=== PATIENT | female | born 1935 | race Caucasian/White ===

== ENCOUNTER 2019-03-17 15:41 | Inpatient (IN) | payer MEDICARE ==
--- NOTE | 2019-03-17 16:23 | EDM.PDOC ---
ED HPI GENERAL MEDICAL PROBLEM - General Chief Complaint: General Stated Complaint: FOUND ON FLOOR Time Seen by Provider: 03/17/19 16:00 Source of Information: Reports: Patient, Old Records History Limitations: Reports: No Limitations - History of Present Illness INITIAL COMMENTS - FREE TEXT/NARRATIVE: Shira comes into [facility] ED by EMS after being found on the bathroom floor by relative about an hour ago. She missed a cardiology appt at 10:30 am today. Shira is uncertain about how events occurred except to say that she remembers getting out of bed this am and does not believe she fell. She does not endorse any headache, lt headiness, or chest pain. She does have a painful R elbow present the past few days, and was seen recently for L leg pain, doppler venous study negative for DVT. She was prescribed Tramadol 50 mg for relief, but daughter suspects she took 2 tabs for pain relief. She lives alone in [facility]. - Related Data Allergies Allergy/AdvReac Type Severity Reaction Status Date / Time No Known Allergies Allergy Verified 03/03/13 09:14 Home Meds: Home Meds Aspirin [Adult Low Dose Aspirin EC] 81 mg PO BEDTIME 12/11/13 [History] Ezetimibe [Zetia] 10 mg PO DAILY 12/11/13 [History] PARoxetine [Paxil] 40 mg PO DAILY 12/11/13 [History] atorvaSTATin [Lipitor] 60 mg PO BEDTIME 12/11/13 [History] Furosemide [Lasix] 40 mg PO DAILY 12/13/13 [History] Warfarin Sodium [Jantoven] 1 mg PO DAILY 03/17/19 [History] hydroCHLOROthiazide [Hydrochlorothiazide] 10 mg PO DAILY 03/17/19 [History] traMADol [Ultram] 50 mg PO Q8HR PRN 03/17/19 [History] ED ROS GENERAL - Review of Systems Review Of Systems: See Below Constitutional: Reports: No Symptoms HEENT: Reports: No Symptoms Respiratory: Reports: No Symptoms Cardiovascular: Reports: No Symptoms Endocrine: Reports: No Symptoms GI/Abdominal: Reports: No Symptoms : Reports: No Symptoms Musculoskeletal: Reports: Arm Pain (R elbow), Leg Pain (L calf and improved on pain meds) Skin: Reports: No Symptoms Neurological: Reports: Syncope (PMH of sycope) Psychiatric: Reports: No Symptoms Hematologic/Lymphatic: Reports: No Symptoms Immunologic: Reports: No Symptoms ED EXAM, GENERAL - Physical Exam Exam: See Below Exam Limited By: No Limitations General Appearance: Alert, WD/WN, No Apparent Distress Eye Exam: Bilateral Eye: EOMI, Normal Inspection, PERRL Ears: Normal External Exam Nose: Normal Inspection Throat/Mouth: Normal Inspection, Normal Oropharynx, Normal Voice Head: Atraumatic, Normocephalic Neck: Normal Inspection, Supple, Non-Tender, Full Range of Motion Respiratory/Chest: No Respiratory Distress, No Accessory Muscle Use, Chest Non- Tender, Decreased Breath Sounds (bases), Crackles Cardiovascular: Normal Peripheral Pulses, Irregularly Irregular, Other (opening 'click' aortic valve) GI/Abdominal: Normal Bowel Sounds, Soft, Non-Tender, No Organomegaly, No Distention, No Mass (Female) Exam: Deferred Rectal (Female) Exam: Deferred Back Exam: Normal Inspection, Full Range of Motion Extremities: Arm Pain (R elbow: tenderness of distal biceps extending to insertion with forearm), Leg Pain (L leg, mild), Limited Range of Motion (R forearm) Neurological: Alert, Oriented, CN II-XII Intact, Normal Cognition, No Motor/ Sensory Deficits Psychiatric: Normal Affect, Normal Mood Skin Exam: Warm, Dry, Intact, Normal Color, No Rash, Other (edema) Lymphatic: No Adenopathy Course - Vital Signs Text/Narrative:: Following assessment in the ED, I started an IV LUE TKO, and provided supplemental 02 for SOB. 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 The CBC noted: Hgb 11.0 gm, WBC 11,900, plts normal; L shift noted; CMP noted Cr 2.9, BUN 80, BNP 12,007; chest x ray noting extensive R middle lobe infiltrates; some cardiomegaly; Head CT non contrast: stable, no new findings; R elbow: no fx seen; a pneumonia is suspected, with pre-renal azotemia. Case discussed with daughter, and she will be admitted as IP. Last Recorded V/S: Last Vital Signs Temp 36.7 C 03/17/19 15:41 Pulse 111 H 03/17/19 15:41 Resp 23 H 03/17/19 15:41 BP 103/65 03/17/19 15:41 Pulse Ox 90 L 03/17/19 15:41 - Orders/Labs/Meds Orders: Active Orders 24 hr Category Date Time Status Chest 1V Frontal [CR] Stat Exams 03/17/19 16:13 Taken Chest 2V [CR] Stat Exams 03/17/19 17:09 Taken Elbow Min 3V Rt [CR] Stat Exams 03/17/19 16:13 Taken Head wo Cont [CT] Urgent Exams 03/17/19 16:25 Taken CRP [C-REACTIVE PROTEIN] [CHEM] Stat Lab 03/17/19 16:15 Received LACTIC ACID [CHEM] Stat Lab 03/17/19 16:15 Received UA W/MICROSCOPIC [URIN] Stat Lab 03/17/19 16:13 Ordered Sodium Chloride 0.9% [Saline Flush] Med 03/17/19 16:17 Active 10 ml FLUSH ASDIRECTED PRN Peripheral IV Insertion Adult [OM.PC] Routine Oth 03/17/19 16:17 Ordered EKG 12 Lead [EK] Routine Ther 03/17/19 16:13 Ordered Medication Orders Sodium Chloride (Saline Flush) 10 ml FLUSH ASDIRECTED PRN PRN Reason: Keep Vein Open Labs: Laboratory Tests 03/17/19 03/17/19 03/17/19 Range/Units 16:15 16:15 16:15 WBC 11.9 (4.5-12.0) X10-3/uL RBC 3.59 (3.23-5.20) x10(6)uL Hgb 11.0 L (11.5-15.5) g/dL Hct 33.2 (30.0-51.3) % MCV 92.5 (80-96) fL MCH 30.7 (27.7-33.6) pg MCHC 33.2 (32.2-35.4) g/dL RDW 15.2 (11.5-15.5) % Plt Count 254 (125-369) X10(3)uL MPV 8.9 (7.4-10.4) fL Add Manual Diff Yes Neutrophils % (Manual) 74 (46-82) % Band Neutrophils % 9 H (0-6) % Lymphocytes % (Manual) 12 L (13-37) % Monocytes % (Manual) 5 (4-12) % PT 30.4 H (8.7-11.1) INR 3.17 H (0.89-1.13) Sodium 136 (135-145) mmol/L Potassium 4.0 (3.5-5.3) mmol/L Chloride 98 L (100-110) mmol/L Carbon Dioxide 25 (21-32) mmol/L BUN 80 H (7-18) mg/dL Creatinine 2.9 H* (0.55-1.02) mg/dL Est Cr Clr Drug Dosing TNP Estimated GFR (MDRD) 16 L (>60) BUN/Creatinine Ratio 27.6 H (9-20) Glucose 111 (80-116) mg/dL Calcium 9.7 (8.6-10.2) mg/dL Total Bilirubin 0.6 (0.1-1.3) mg/dL AST 122 H (5-25) IU/L ALT 40 H (12-36) U/L Alkaline Phosphatase 86 (56-112) IU/L Troponin I (<0.017-0.056) ng/mL NT-Pro-B Natriuret Pep (<=450) pg/mL Total Protein 7.3 (6.0-8.0) g/dL Albumin 2.5 L (3.2-4.6) g/dL Globulin 4.8 g/dL Albumin/Globulin Ratio 0.5 03/17/19 03/17/19 Range/Units 16:15 16:15 WBC (4.5-12.0) X10-3/uL RBC (3.23-5.20) x10(6)uL Hgb (11.5-15.5) g/dL Hct (30.0-51.3) % MCV (80-96) fL MCH (27.7-33.6) pg MCHC (32.2-35.4) g/dL RDW (11.5-15.5) % Plt Count (125-369) X10(3)uL MPV (7.4-10.4) fL Add Manual Diff Neutrophils % (Manual) (46-82) % Band Neutrophils % (0-6) % Lymphocytes % (Manual) (13-37) % Monocytes % (Manual) (4-12) % PT (8.7-11.1) INR (0.89-1.13) Sodium (135-145) mmol/L Potassium (3.5-5.3) mmol/L Chloride (100-110) mmol/L Carbon Dioxide (21-32) mmol/L BUN (7-18) mg/dL Creatinine (0.55-1.02) mg/dL Est Cr Clr Drug Dosing Estimated GFR (MDRD) (>60) BUN/Creatinine Ratio (9-20) Glucose (80-116) mg/dL Calcium (8.6-10.2) mg/dL Total Bilirubin (0.1-1.3) mg/dL AST (5-25) IU/L ALT (12-36) U/L Alkaline Phosphatase (56-112) IU/L Troponin I 0.034 (<0.017-0.056) ng/mL NT-Pro-B Natriuret Pep 32687 H* (<=450) pg/mL Total Protein (6.0-8.0) g/dL Albumin (3.2-4.6) g/dL Globulin g/dL Albumin/Globulin Ratio Meds: Medications Generic Name Dose Route Start Last Admin Trade Name Freq PRN Reason Stop Dose Admin Sodium Chloride 10 ml 03/17/19 16:17 Saline Flush FLUSH ASDIRECTED PRN Keep Vein Open Discontinued Medications Generic Name Dose Route Start Last Admin Trade Name Freq PRN Reason Stop Dose Admin Sodium Chloride 1,000 mls @ 500 mls/hr 03/17/19 16:30 03/17/19 16:00 Normal Saline IV 500 mls/hr ASDIRECTED FLAKITA Administration Departure - Departure Time of Disposition: 17:42 Disposition: Admitted As Inpatient 68 Condition: Fair Clinical Impression: Pneumonia, Prerenal azotemia - Discharge Information *PRESCRIPTION DRUG MONITORING PROGRAM REVIEWED*: Not Applicable *COPY OF PRESCRIPTION DRUG MONITORING REPORT IN PATIENT DULCE: Not Applicable Referrals: Mary Ellen Núñez [employer] [Primary Care Provider] - Forms: ED Department Discharge - Problem List & Annotations (1) Pneumonia SNOMED Code(s): 842655621 Code(s): J18.9 - PNEUMONIA, UNSPECIFIED ORGANISM Status: Acute Current Visit: Yes Annotation/Comment:: Admit, start antibx, provide supplemental 02 (2) Prerenal azotemia SNOMED Code(s): 448556221 Code(s): R79.89 - OTHER SPECIFIED ABNORMAL FINDINGS OF BLOOD CHEMISTRY Status: Acute Current Visit: Yes Annotation/Comment:: Rehydration with NS. - Problem List Review Problem List Initiated/Reviewed/Updated: Yes - My Orders Last 24 Hours: My Active Orders 03/17/19 16:13 Chest 1V Frontal [CR] Stat Elbow Min 3V Rt [CR] Stat UA W/MICROSCOPIC [URIN] Stat EKG 12 Lead [EK] Routine 03/17/19 16:15 CRP [C-REACTIVE PROTEIN] [CHEM] Stat LACTIC ACID [CHEM] Stat 03/17/19 16:17 Sodium Chloride 0.9% [Saline Flush] 10 ml FLUSH ASDIRECTED PRN Peripheral IV Insertion Adult [OM.PC] Routine 03/17/19 16:25 Head wo Cont [CT] Urgent 03/17/19 17:09 Chest 2V [CR] Stat - Assessment/Plan Last 24 Hours: My Active Orders 03/17/19 16:13 Chest 1V Frontal [CR] Stat Elbow Min 3V Rt [CR] Stat UA W/MICROSCOPIC [URIN] Stat EKG 12 Lead [EK] Routine 03/17/19 16:15 CRP [C-REACTIVE PROTEIN] [CHEM] Stat LACTIC ACID [CHEM] Stat 03/17/19 16:17 Sodium Chloride 0.9% [Saline Flush] 10 ml FLUSH ASDIRECTED PRN Peripheral IV Insertion Adult [OM.PC] Routine 03/17/19 16:25 Head wo Cont [CT] Urgent 03/17/19 17:09 Chest 2V [CR] Stat Plan: Hospitalist to see in the am.
[2019-03-17] MEDS ORDERED: Sodium Chloride 0.9% 1,000 ML IV SCH ×2 (16:30→20:35)
[2019-03-17] MEDS ORDERED: cefTRIAXone 1 GM in Sodium Chloride 0.9% 50 ML IV SCH (18:00)
[2019-03-17] MEDS: Azithromycin 500 MG in Sodium Chloride 0.9% 250 ML IV SCH (18:53)
[2019-03-17] MEDS: Acetaminophen 325 MG Tab PO PRN (20:40)
[2019-03-18] MEDS ORDERED: Sodium Chloride 0.9% 1,000 ML IV SCH (00:25)
[2019-03-18] MEDS ORDERED: Loperamide 2 MG Cap PO PRN (09:15)
--- NOTE | 2019-03-18 09:22 | PCM.HP.2 ---
H&P History of Present Illness - General Date of Service: 03/18/19 Admit Problem/Dx: Admission Diagnosis/Problem Admission Diagnosis/Problem Pneumonia Source of Information: Patient, Family History Limitations: Reports: No Limitations - History of Present Illness Initial Comments - Free Text/Narative: Gloria is an 84-year-old female that came in because of pain in the right knee leg and right. She was found on the for a period of time unspecified. She missed a cardiology appointment,therefore the family called to check on her. She states that she took tramadol(perhaps 2 tabs) because of pain,and she just laid on the floor to rest but was unable to get up. Shira endorses difficulty walking, right elbow pain, right knee pain in the posterior aspect, has been for about a week. She had knee replacement on that side one and half years ago. She has a history of congestive heart failure, coronary artery disease, hypertension that are all previously under control. - Related Data Allergies/Adverse Reactions: Allergies Allergy/AdvReac Type Severity Reaction Status Date / Time No Known Allergies Allergy Verified 03/03/13 09:14 Home Medications: Home Meds Furosemide [Lasix] 20 mg PO DAILY 12/13/13 [History] hydroCHLOROthiazide [Hydrochlorothiazide] 25 mg PO DAILY 03/17/19 [History] traMADol [Ultram] 50 mg PO Q8H PRN 03/17/19 [History] Acetaminophen [Acetaminophen Extra Strength] 1,000 mg PO WITHDINNER 03/18/19 [ History] Acetaminophen/Diphenhydramine [Tylenol Pm Ex-Strength Caplet] 1 tab PO BEDTIME 03/18/19 [History] Aspirin 81 mg PO DAILY 03/18/19 [History] Carboxymethylcellulose Sodium [Refresh Liquigel 1% Ophth Soln] 1 drop EYEBOTH BEDTIME 03/18/19 [History] Enalapril [Vasotec] 1.25 mg PO DAILY 03/18/19 [History] Ezetimibe [Zetia] 10 mg PO DAILY 03/18/19 [History] Ibuprofen 200 mg PO TID PRN 03/18/19 [History] Loperamide [Imodium AD] 2 mg PO ASDIRECTED PRN 03/18/19 [History] Metoprolol Succinate [Toprol XL 50mg] 50 mg PO DAILY 03/18/19 [History] Multivitamin [Daily Multiple Vitamin] 0.5 each PO BID 03/18/19 [History] [place]-3 Fatty Acids/Fish Oil [Fish Oil 1,200 mg Softgel] 1 cap PO DAILY [History] PARoxetine HCl [Paxil] 40 mg PO DAILY 03/18/19 [History] Warfarin Sodium [Jantoven] 5 mg PO DAILY@1600 03/18/19 [History] atorvaSTATin [Lipitor] 60 mg PO BEDTIME 03/18/19 [History] Past Medical History HEENT History: Reports: Cataract Cardiovascular History: Reports: Bypass, Heart Failure, Heart Valve Replacement Respiratory History: Reports: Sleep Apnea, Other (See Below) Other Respiratory History: Put powder in both lungs for fluid, from CHF. Has a frequent cough. [employer] History: Reports: Musculoskeletal History: Reports: Arthritis Dermatologic History: Reports: Other (See Below) Other Dermatologic History: Yellow nail syndrome. - Infectious Disease History Infectious Disease History: Reports: Chicken Pox, MRSA, Mumps, Other (See Below) Other Infectious Disease History: History MRSA, ingrown hair, buttock area, hospitalized. Patient states she had measles, unsure if Rubella or Rubeola. - Past Surgical History HEENT Surgical History: Reports: Cataract Surgery Musculoskeletal Surgical History: Reports: Knee Replacement, Shoulder Surgery Social & Family History - Family History Family Medical History: Noncontributory - Tobacco Use Smoking Status *Q: Never Smoker Second Hand Smoke Exposure: No - Caffeine Use Caffeine Use: Reports: Coffee Caffeine Use Comment: de-caf coffee - Alcohol Use Days Per Week of Alcohol Use: 1 Number of Drinks Per Day: 2 Total Drinks Per Week: 2 - Recreational Drug Use Recreational Drug Use: No H&P Review of Systems - Review of Systems: Review Of Systems: ROS reveals no pertinent complaints other than HPI. Exam - Exam Exam: See Below - Vital Signs Vital Signs: Last Vital Signs Temp 98 F 03/17/19 22:35 Pulse 111 H 03/18/19 04:00 Resp 18 03/18/19 04:00 BP 115/69 03/18/19 04:00 Pulse Ox 99 03/18/19 04:00 Weight: 85.457 kg - Exam Quality Assessment: Supplemental Oxygen General: Alert, Oriented, 4 HEENT: PERRLA, Hearing Intact, Mucosa Moist & [place], Nares Patent, Normal Nasal Septum, Posterior Pharynx Clear, Conjunctiva Clear, EOMI, EACs Clear, TMs Clear Neck: Supple, Trachea Midline, 2 Lungs: Crackles Cardiovascular: Irregular Rhythm, Tachycardia GI/Abdominal Exam: Normal Bowel Sounds, Soft, Non-Tender, No Organomegaly, No Distention, No Abnormal Bruit, No Mass, Pelvis Stable (Female) Exam: Deferred Rectal (Female) Exam: Deferred Back Exam: Normal Inspection, Full Range of Motion, NT Extremities: No Pedal Edema, Leg Pain, Other (tender posteriour knee) Skin: Warm, Dry, Intact Neurological: Cranial Nerves Intact Neuro Extensive - Mental Status: Alert, Oriented x3, Normal Mood/Affect, Normal Cognition Neuro Extensive - Motor, Sensory, Reflexes: CN II-XII Intact, Normal Gait, Normal Reflexes Psychiatric: Alert, Normal Affect, Normal Mood - Patient Data Lab Results Last 24 hrs: Laboratory Results - last 24 hr 03/17/19 03/17/19 03/17/19 Range/Units 16:15 16:15 16:15 WBC 11.9 (4.5-12.0) X10-3/uL RBC 3.59 (3.23-5.20) x10(6)uL Hgb 11.0 L (11.5-15.5) g/dL Hct 33.2 (30.0-51.3) % MCV 92.5 (80-96) fL MCH 30.7 (27.7-33.6) pg MCHC 33.2 (32.2-35.4) g/dL RDW 15.2 (11.5-15.5) % Plt Count 254 (125-369) X10(3)uL MPV 8.9 (7.4-10.4) fL Add Manual Diff Yes Neutrophils % (Manual) 74 (46-82) % Band Neutrophils % 9 H (0-6) % Lymphocytes % (Manual) 12 L (13-37) % Monocytes % (Manual) 5 (4-12) % PT 30.4 H (8.7-11.1) INR 3.17 H (0.89-1.13) Sodium 136 (135-145) mmol/L Potassium 4.0 (3.5-5.3) mmol/L Chloride 98 L (100-110) mmol/L Carbon Dioxide 25 (21-32) mmol/L BUN 80 H (7-18) mg/dL Creatinine 2.9 H* (0.55-1.02) mg/dL Est Cr Clr Drug Dosing TNP Estimated GFR (MDRD) 16 L (>60) BUN/Creatinine Ratio 27.6 H (9-20) Glucose 111 (80-116) mg/dL Lactic Acid (0.4-2.2) mmol/L Calcium 9.7 (8.6-10.2) mg/dL Total Bilirubin 0.6 (0.1-1.3) mg/dL AST 122 H (5-25) IU/L ALT 40 H (12-36) U/L Alkaline Phosphatase 86 (56-112) IU/L Troponin I (<0.017-0.056) ng/mL C-Reactive Protein (0.5-0.9) mg/dL NT-Pro-B Natriuret Pep (<=450) pg/mL Total Protein 7.3 (6.0-8.0) g/dL Albumin 2.5 L (3.2-4.6) g/dL Globulin 4.8 g/dL Albumin/Globulin Ratio 0.5 Urine Color (YELLOW) Urine Appearance (CLEAR) Urine pH (5.0-6.5) Ur Specific [place] (1.010-1.025) Urine Protein (NEGATIVE) mg/dL Urine Glucose (UA) (NORMAL) mg/dL Urine Ketones (NEGATIVE) mg/dL Urine Occult Blood (NEGATIVE) Urine Nitrite (NEGATIVE) Urine Bilirubin (NEGATIVE) Urine Urobilinogen (NEGATIVE) mg/dL Ur Leukocyte Esterase (NEGATIVE) Urine RBC (0-5) Urine WBC (0-5) Ur Squamous Epith Cells (NS,R,O) Urine Bacteria (NS) Coarse Granular Casts (NS) 03/17/19 03/17/19 03/17/19 Range/Units 16:15 16:15 16:15 WBC (4.5-12.0) X10-3/uL RBC (3.23-5.20) x10(6)uL Hgb (11.5-15.5) g/dL Hct (30.0-51.3) % MCV (80-96) fL MCH (27.7-33.6) pg MCHC (32.2-35.4) g/dL RDW (11.5-15.5) % Plt Count (125-369) X10(3)uL MPV (7.4-10.4) fL Add Manual Diff Neutrophils % (Manual) (46-82) % Band Neutrophils % (0-6) % Lymphocytes % (Manual) (13-37) % Monocytes % (Manual) (4-12) % PT (8.7-11.1) INR (0.89-1.13) Sodium (135-145) mmol/L Potassium (3.5-5.3) mmol/L Chloride (100-110) mmol/L Carbon Dioxide (21-32) mmol/L BUN (7-18) mg/dL Creatinine (0.55-1.02) mg/dL Est Cr Clr Drug Dosing Estimated GFR (MDRD) (>60) BUN/Creatinine Ratio (9-20) Glucose (80-116) mg/dL Lactic Acid 1.8 (0.4-2.2) mmol/L Calcium (8.6-10.2) mg/dL Total Bilirubin (0.1-1.3) mg/dL AST (5-25) IU/L ALT (12-36) U/L Alkaline Phosphatase (56-112) IU/L Troponin I 0.034 (<0.017-0.056) ng/mL C-Reactive Protein (0.5-0.9) mg/dL NT-Pro-B Natriuret Pep 25064 H* (<=450) pg/mL Total Protein (6.0-8.0) g/dL Albumin (3.2-4.6) g/dL Globulin g/dL Albumin/Globulin Ratio Urine Color (YELLOW) Urine Appearance (CLEAR) Urine pH (5.0-6.5) Ur Specific [place] (1.010-1.025) Urine Protein (NEGATIVE) mg/dL Urine Glucose (UA) (NORMAL) mg/dL Urine Ketones (NEGATIVE) mg/dL Urine Occult Blood (NEGATIVE) Urine Nitrite (NEGATIVE) Urine Bilirubin (NEGATIVE) Urine Urobilinogen (NEGATIVE) mg/dL Ur Leukocyte Esterase (NEGATIVE) Urine RBC (0-5) Urine WBC (0-5) Ur Squamous Epith Cells (NS,R,O) Urine Bacteria (NS) Coarse Granular Casts (NS) 10/08/3103/17/19 03/17/19 Range/Units 16:15 17:59 23:59 WBC (4.5-12.0) X10-3/uL RBC (3.23-5.20) x10(6)uL Hgb (11.5-15.5) g/dL Hct (30.0-51.3) % MCV (80-96) fL MCH (27.7-33.6) pg MCHC (32.2-35.4) g/dL RDW (11.5-15.5) % Plt Count (125-369) X10(3)uL MPV (7.4-10.4) fL Add Manual Diff Neutrophils % (Manual) (46-82) % Band Neutrophils % (0-6) % Lymphocytes % (Manual) (13-37) % Monocytes % (Manual) (4-12) % PT (8.7-11.1) INR (0.89-1.13) Sodium 135 (135-145) mmol/L Potassium 3.9 (3.5-5.3) mmol/L Chloride 99 L (100-110) mmol/L Carbon Dioxide 25 (21-32) mmol/L BUN 83 H (7-18) mg/dL Creatinine 2.6 H* (0.55-1.02) mg/dL Est Cr Clr Drug Dosing 13.80 Estimated GFR (MDRD) 18 L (>60) BUN/Creatinine Ratio 31.9 H (9-20) Glucose 118 H (80-116) mg/dL Lactic Acid (0.4-2.2) mmol/L Calcium 9.3 (8.6-10.2) mg/dL Total Bilirubin (0.1-1.3) mg/dL AST (5-25) IU/L ALT (12-36) U/L Alkaline Phosphatase (56-112) IU/L Troponin I (<0.017-0.056) ng/mL C-Reactive Protein > 12.0 H* (0.5-0.9) mg/dL NT-Pro-B Natriuret Pep (<=450) pg/mL Total Protein (6.0-8.0) g/dL Albumin (3.2-4.6) g/dL Globulin g/dL Albumin/Globulin Ratio Urine Color Yellow (YELLOW) Urine Appearance Slightly cloudy (CLEAR) Urine pH 5.0 (5.0-6.5) Ur Specific [place] 1.020 (1.010-1.025) Urine Protein Negative (NEGATIVE) mg/dL Urine Glucose (UA) Normal (NORMAL) mg/dL Urine Ketones Negative (NEGATIVE) mg/dL Urine Occult Blood Large H (NEGATIVE) Urine Nitrite Negative (NEGATIVE) Urine Bilirubin Negative (NEGATIVE) Urine Urobilinogen Normal (NEGATIVE) mg/dL Ur Leukocyte Esterase Negative (NEGATIVE) Urine RBC 10-20 H (0-5) Urine WBC 0-5 (0-5) Ur Squamous Epith Cells Few H (NS,R,O) Urine Bacteria Few H (NS) Coarse Granular Casts Few H (NS) 03/18/19 03/18/19 Range/Units 06:40 06:40 WBC 11.9 (4.5-12.0) X10-3/uL RBC 3.49 (3.23-5.20) x10(6)uL Hgb 10.4 L (11.5-15.5) g/dL Hct 32.3 (30.0-51.3) % MCV 92.4 (80-96) fL MCH 29.8 (27.7-33.6) pg MCHC 32.3 (32.2-35.4) g/dL RDW 15.8 H (11.5-15.5) % Plt Count 225 (125-369) X10(3)uL MPV 8.9 (7.4-10.4) fL Add Manual Diff Yes Neutrophils % (Manual) 82 (46-82) % Band Neutrophils % 5 (0-6) % Lymphocytes % (Manual) 5 L (13-37) % Monocytes % (Manual) 8 (4-12) % PT (8.7-11.1) INR (0.89-1.13) Sodium 136 (135-145) mmol/L Potassium 4.3 (3.5-5.3) mmol/L Chloride 100 (100-110) mmol/L Carbon Dioxide 24 (21-32) mmol/L BUN 75 H (7-18) mg/dL Creatinine 2.2 H* (0.55-1.02) mg/dL Est Cr Clr Drug Dosing 16.31 Estimated GFR (MDRD) 21 L (>60) BUN/Creatinine Ratio 34.1 H (9-20) Glucose 116 (80-116) mg/dL Lactic Acid (0.4-2.2) mmol/L Calcium 9.2 (8.6-10.2) mg/dL Total Bilirubin (0.1-1.3) mg/dL AST (5-25) IU/L ALT (12-36) U/L Alkaline Phosphatase (56-112) IU/L Troponin I (<0.017-0.056) ng/mL C-Reactive Protein (0.5-0.9) mg/dL NT-Pro-B Natriuret Pep (<=450) pg/mL Total Protein (6.0-8.0) g/dL Albumin (3.2-4.6) g/dL Globulin g/dL Albumin/Globulin Ratio Urine Color (YELLOW) Urine Appearance (CLEAR) Urine pH (5.0-6.5) Ur Specific [place] (1.010-1.025) Urine Protein (NEGATIVE) mg/dL Urine Glucose (UA) (NORMAL) mg/dL Urine Ketones (NEGATIVE) mg/dL Urine Occult Blood (NEGATIVE) Urine Nitrite (NEGATIVE) Urine Bilirubin (NEGATIVE) Urine Urobilinogen (NEGATIVE) mg/dL Ur Leukocyte Esterase (NEGATIVE) Urine RBC (0-5) Urine WBC (0-5) Ur Squamous Epith Cells (NS,R,O) Urine Bacteria (NS) Coarse Granular Casts (NS) Result Diagrams: 03/18/19 06:40 03/18/19 06:40 EKG INTERPRETATION [place]: Normal - Problem List (1) Knee pain SNOMED Code(s): 79847380 ICD Code: M25.569 - PAIN IN UNSPECIFIED KNEE Status: Acute Current Visit : Yes Qualifiers: Chronicity: acute Laterality: left Qualified Code(s): M25.562 - Pain in left knee (2) CAD (coronary artery disease) SNOMED Code(s): 78436003 ICD Code: I25.10 - ATHSCL HEART DISEASE OF [place] CORONARY ARTERY W/O ANG PCTRS Status: Chronic Current Visit: Yes Qualifiers: Coronary Disease-Associated Artery/Lesion type: bypass graft [place] vs. transplanted heart: [place] heart Associated angina: without angina Qualified Code(s): I25.810 - Atherosclerosis of coronary artery bypass graft(s) without angina pectoris (3) CHF (congestive heart failure) SNOMED Code(s): 33389985 ICD Code: I50.9 - HEART FAILURE, UNSPECIFIED Status: Acute Current Visit : Yes Qualifiers: Heart failure type: systolic (4) HTN (hypertension) SNOMED Code(s): 67130746 ICD Code: I10 - ESSENTIAL (PRIMARY) HYPERTENSION Status: Chronic Current Visit: Yes Qualifiers: Hypertension type: essential hypertension Qualified Code(s): I10 - Essential (primary) hypertension (5) Pneumonia SNOMED Code(s): 474862188 ICD Code: J18.9 - PNEUMONIA, UNSPECIFIED ORGANISM Status: Acute Current Visit: Yes Problem Details: Admit, start antibx, provide supplemental 02 (6) Prerenal azotemia SNOMED Code(s): 994135036 ICD Code: R79.89 - OTHER SPECIFIED ABNORMAL FINDINGS OF BLOOD CHEMISTRY Status: Acute Current Visit: Yes Problem Details: Rehydration with NS. (7) Afib SNOMED Code(s): 50098407 ICD Code: I48.91 - UNSPECIFIED ATRIAL FIBRILLATION Status: Acute Current Visit: Yes Qualifiers: Atrial fibrillation type: paroxysmal Qualified Code(s): I48.0 - Paroxysmal atrial fibrillation (8) PEEWEE (obstructive sleep apnea) SNOMED Code(s): 28612510 ICD Code: G47.33 - OBSTRUCTIVE SLEEP APNEA (ADULT) (PEDIATRIC) Status: Acute Current Visit: Yes (9) Valvular heart disease Status: Acute Current Visit: Yes (10) Osteoarthritis SNOMED Code(s): 611680056 ICD Code: M19.90 - UNSPECIFIED OSTEOARTHRITIS, UNSPECIFIED SITE Status: Acute Current Visit: Yes Problem List Initiated/Reviewed/Updated: Yes Orders Last 24hrs: Active Orders 24 hr Category Date Time Status Patient Status [ADT] Routine ADT 03/17/19 17:46 Active Bedrest Bedside Commode [RC] ASDIRECTED Care 03/17/19 17:46 Active Height and Weight [RC] UPON Care 03/17/19 17:46 Active Intake and Output [RC] 06,14,22 Care 03/17/19 17:48 Active Oxygen Therapy [RC] 00 Care 03/17/19 17:46 Active Pulse Oximetry [RC] CONTINUOUS Care 03/17/19 17:48 Active VTE/DVT Education [RC] Per Unit Routine Care 03/17/19 17:46 Active Vital Signs [RC] 00,04,08,12,16,20 Care 03/17/19 17:46 Active OT Evaluation and Treatment [CONS] Routine Cons 03/18/19 08:53 Active PT Evaluation and Treatment [CONS] Routine Cons 03/18/19 08:53 Active 2 Gram Sodium Diet [DIET] Diet 03/17/19 Dinner Active Chest 1V Frontal [CR] Stat Exams 03/17/19 16:13 Taken Chest 2V [CR] Stat Exams 03/17/19 17:09 Taken Elbow Min 3V Rt [CR] Stat Exams 03/17/19 16:13 Taken Head wo Cont [CT] Urgent Exams 03/17/19 16:25 Taken BASIC METABOLIC PANEL,BMP [CHEM] AM Lab 03/19/19 05:11 Ordered CBC WITH AUTO DIFF [HEME] AM Lab 03/19/19 05:11 Ordered CULTURE BLOOD [BC] Urgent Lab 03/17/19 18:50 Received CULTURE BLOOD [BC] Urgent Lab 03/17/19 18:55 Received PRO B-TYPE NATRIUR PEPT,BNPPRO [CHEM] DAILY Lab 03/19/19 05:11 Ordered Acetaminophen [Tylenol Extra Strength] Med 03/18/19 18:00 Active 1,000 mg PO WITHDINNER Acetaminophen [Tylenol] Med 03/17/19 17:46 Active 650 mg PO Q4H PRN Aspirin Med 03/18/19 09:00 Active 81 mg PO DAILY Azithromycin [Zithromax] 500 mg Med 03/17/19 18:00 Active Sodium Chloride 0.9% [Normal Saline (AdvBag)] 250 ml IV Q24H Carboxymethylcellulose Sodium [Refresh Liquigel 1%] Med 03/18/19 21:00 Active 0 ml EYEBOTH BEDTIME Ezetimibe [Zetia] Med 03/18/19 09:00 Active 10 mg PO DAILY Fish Oil/[place]-3 Fatty Acids [Fish Oil] Med 03/18/19 09:15 Active 1 gm PO DAILY Furosemide [Lasix] Med 03/19/19 09:00 Active 20 mg PO DAILY Loperamide [Imodium] Med 03/18/19 09:15 Active 2 mg PO ASDIRECTED PRN Metoprolol Succinate [Toprol XL] Med 03/18/19 09:00 Active 50 mg PO DAILY Multivitamins [Tab-A-Bobby] Med 03/18/19 09:00 Ordered DOSE tab PO BID PARoxetine [Paxil] Med 03/18/19 09:00 Active 40 mg PO DAILY Sodium Chloride 0.9% [Normal Saline] 1,000 ml Med 03/17/19 20:35 Active IV ASDIRECTED Sodium Chloride 0.9% [Saline Flush] Med 03/17/19 16:17 Active 10 ml FLUSH ASDIRECTED PRN Warfarin [Coumadin] Med 03/18/19 16:00 Active 5 mg PO DAILY@1600 atorvaSTATin [Lipitor] Med 03/18/19 21:00 Active 60 mg PO BEDTIME cefTRIAXone [Rocephin] 1 gm Med 03/17/19 18:00 Active Sodium Chloride 0.9% [Normal Saline] 50 ml IV Q24H traMADol [Ultram] Med 03/18/19 08:56 Active 50 mg PO Q8H PRN Blood Culture x2 Reflex Set [OM.PC] Urgent Oth 03/17/19 17:46 Ordered Peripheral IV Insertion Adult [OM.PC] Routine Oth 03/17/19 16:17 Ordered Resuscitation Status Routine Resus Stat 03/17/19 17:46 Ordered EKG 12 Lead [EK] Routine Ther 03/17/19 16:13 Stop Req Medication Orders Acetaminophen (Tylenol) 650 mg PO Q4H PRN PRN Reason: Pain (Mild 1-3)/fever Last Admin: 03/17/19 20:40 Dose: 650 mg Acetaminophen (Tylenol Extra Strength) 1,000 mg PO WITHDINNER [facility] Artificial Tears (Refresh Liquigel 1%) 0 ml EYEBOTH BEDTIME [facility] Aspirin (Aspirin) 81 mg PO DAILY [facility] Atorvastatin Calcium (Lipitor) 60 mg PO BEDTIME [facility] Ezetimibe (Zetia) 10 mg PO DAILY [facility] Fish Oil (Fish Oil) 1 gm PO DAILY [facility] Furosemide (Lasix) 20 mg PO DAILY [facility] Azithromycin 500 mg/ Sodium (Chloride) 250 mls @ 250 mls/hr IV Q24H [facility] Last Admin: 03/17/19 18:53 Dose: 250 mls/hr Ceftriaxone Sodium 1 gm/ (Sodium Chloride) 50 mls @ 200 mls/hr IV Q24H [facility] Last Admin: 03/17/19 18:17 Dose: 200 mls/hr Sodium Chloride (Normal Saline) 1,000 mls @ 2,000 mls/hr IV ASDIRECTED [facility] Last Infusion: 03/18/19 00:25 Dose: 125 mls/hr Admin: 03/18/19 00:05 Dose: 2,000 mls/hr Loperamide HCl (Imodium) 2 mg PO ASDIRECTED PRN PRN Reason: LOOSE STOOLS Metoprolol Succinate (Toprol Xl) 50 mg PO DAILY [facility] Multivitamins/Minerals/Vitamin C (Tab-A-Bobby) tab PO BID [facility] Paroxetine HCl (Paxil) 40 mg PO DAILY [facility] Sodium Chloride (Saline Flush) 10 ml FLUSH ASDIRECTED PRN PRN Reason: Keep Vein Open Tramadol HCl (Ultram) 50 mg PO Q8H PRN PRN Reason: Pain Warfarin Sodium (Coumadin) 5 mg PO DAILY@1600 [facility] Assessment/Plan Comment:: The x-ray shows a right-sided infiltrate. She doesn't complain of any fever but has had a chronic cough and does needed oxygen overnight. I agree with Rocephin and azithromycin for treatment. I've discontinued fluids in fear of setting her up for failure(heart). I'll repeat labs, ask physical and occupational therapy for evaluation and resume home medications including Coumadin.X ray the right shoulder.Elbow apparently negative. The knee knee has a posterior fossa cyst.An X ray would be appropriate. - Mortality Measure Prognosis:: Good
[2019-03-18] MEDS ORDERED: Warfarin Sliding Scale PO SCH (09:30)
--- NOTE | 2019-03-18 09:42 | CR ---
INDICATION: Found on floor, question syncopal episode. RIGHT ELBOW: Four images in three projections of the right elbow revealed mild osteoarthritis in the medial elbow joint compartment. Slight demineralization may represent osteoporosis but should be correlated clinically. A fracture, dislocation, joint effusion, or other significant bone or joint abnormality was not identified. IMPRESSION: 1. Mild medial compartment osteoarthritis. 2. Question minimal demineralization. MTDD
[2019-03-18] MEDS: PARoxetine 20 MG Tab PO SCH (09:54)
[2019-03-18] MEDS: Fish Oil/Omega-3 Fatty Acids 1 Gm Cap PO SCH (09:54)
[2019-03-18] MEDS: Aspirin 81 MG Tab.Chew PO SCH (09:55)
[2019-03-18] MEDS: Ezetimibe 10 MG Tab PO SCH (09:55)
[2019-03-18] MEDS: Multivitamin Tab PO SCH (09:55)
[2019-03-18] MEDS: Metoprolol Succinate 50 MG Tab.ER PO SCH (09:55)
[2019-03-18] MEDS: traMADol 50 MG Tab PO PRN ×2 (09:56→18:02)
--- NOTE | 2019-03-18 10:46 | CT ---
INDICATION: Found on floor, question syncopal episode. CT HEAD WITHOUT CONTRAST: Spiral 3.75 mm axial sections were obtained through the brain 03/17/19 and compared with 12/11/13. Total exam DLP = 1,373.85 mGy- cm. Calcifications are noted in the left vertebral and internal carotid arteries, as previously. The orbits appear to be grossly intact. There is thickening of the linings of the maxillary antra, more prominently at the left than right, which could be on the basis of sinusitis. An air fluid level in the right maxillary antrum raising question of acute maxillary sinusitis. Frothy appearing fluid is suggested in the left maxillary sinus, also suggesting acute sinusitis. There is noted thickening of the linings of several ethmoidal air cells and right sphenoidal air cell, as well as at the bases of the frontal air cells, suggesting additional sinusitis. The mastoid air cells appear to be fairly well-aerated. Degenerative changes are noted at the atlantoodontoid joint. There is a small bony fragment left lateral to the odontoid, which was present previously and could represent a tiny avulsion chip fracture fragment that did not unite from a previous injury off the atlas at the border of the atlantoodontoid joint. No cranial fracture site was identified. There is again noted a low density - cystic appearing mass in the left posterior parietal bone. This appears unchanged and is likely not of clinical significance. No shift of midline structures was identified. Slightly progressive atrophy is suggested centrally and cortical. Probable lacunar infarct is noted at the genu of the internal capsule on the left, present previously, associated with some minimal calcification. Slightly progressive white matter changes are noted, compatible with mild microvascular disease. Other cause of leukoencephalopathy cannot be excluded. No finding to strongly suggest an acute intracranial abnormality was identified - no bleeding site or hematoma was seen. IMPRESSION: 1. No definite acute intracranial abnormality. 2. Cerebrovascular disease with mild microvascular disease likely. 3. Paranasal sinusitis suggested. 4. 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 5. Mildly progressive generalized atrophy. Report was given in person to Dr. Barth at approximately 1700 hours on 03/17/19. [facility]
--- NOTE | 2019-03-18 10:52 | CR ---
INDICATION: Found on floor, question syncopal episode. CHEST: An AP wheelchair view of the chest obtained upright showed a very poor inspiration, emphasizing markings. It was obtained on 03/17/19 and is compared with CT scan from 11/16/13. Pleural parenchymal changes are noted at both lung bases, some of which may be atelectatic in nature; however, pneumonia at the lung bases and pleuritis cannot be excluded, especially on the right. PA and lateral views of the chest with full inspiration may be helpful for further evaluation. The heart is enlarged. The aorta is tortuous with calcification. Evidence of aortic valve replacement is noted with median sternotomy. Overlying EKG leads are noted. IMPRESSION: 1. Bibasilar pleural parenchymal changes may represent pneumonia and pleuritis. Full inspiration PA and lateral views of the chest recommended for further evaluation. 2. ASHD with cardiomegaly. Minimal, if any, CHF. 3. Post aortic valve replacement. Report was given in person to Dr. Barth immediately after the examination was completed on 03/17/19. [facility]
--- NOTE | 2019-03-18 10:58 | CR ---
INDICATION: Found on floor, question syncopal episode. CHEST: PA and lateral views of the chest were obtained 03/17/19 at 1702 hours and compared with a single view examination from [address] of the chest from 11/16/13. Consolidating infiltration is present at the middle lobe, blurring the left cardiac margin, with blunting of the costophrenic angle and posterior sulcus on the right. This appearance is compatible with pneumonia and pleuritis but should be correlated clinically. There is some linear atelectasis and possibly fibrosis at the left lung base with some minimal pleural reaction, which could be fibrotic in nature. The heart was slightly enlarged with aortic valve replacement. The aorta is tortuous and calcified in the arch and descending portion. Median sternotomy with aortic valve replacement is again noted. Overlying EKG leads are noted. Diminished bone density is compatible with osteoporosis. AP diameter prominence, flattening of diaphragm leaves, and hyperaeration all suggest COPD. IMPRESSION: 1. Pneumonia and pleuritis right middle lobe, somewhat patchy consolidation is present. 2. Minimal pneumonia and pleuritis at the left lung base versus fibrosis. 3. ASHD, cardiomegaly, aortic valve replacement. 4. Osteoporosis. 5. COPD. Report was given in person to Dr. Barth immediately after the examination was completed on 03/17/19. MTDD
--- NOTE | 2019-03-18 15:28 | CT ---
INDICATION: Pain elbow/forearm. CT RIGHT FOREARM: Spiral 1.25 mm axial sections were obtained through the forearm times two, due to the first being inadequately positioned apparently due to patients inability to position satisfactorily. Sagittal and coronal reconstructions were obtained, 03/18/19 - no comparisons. Total exam DLP = 1, 851.52 mGy-cm. Mild degenerative changes are noted at the medial elbow joint compartment and at the radiocarpal joint, mostly at the radial lunate joint. No evidence of an acute fracture or dislocation was identified. There appears to be an elbow joint effusion, which could be on the basis of soft tissue injury or occult fracture; however, no fracture site is seen at this time. A followup study with plain films in 2-3 weeks may be helpful for further evaluation. MRI of the elbow to evaluate for soft tissue injury may also be helpful, depending upon clinical correlation. IMPRESSION: No visualized fracture or dislocation. However, there is evidence of an elbow joint effusion, which should be correlated clinically, as a soft tissue injury could be present. MRI may be helpful in that regard, depending upon clinical necessity. EVERARDOD
--- NOTE | 2019-03-18 15:35 | CT ---
INDICATION: Knee pain. Surgery [address] KNEES FOR LEFT KNEE: Spiral 2.5 mm axial sections were obtained through the knees for the left knee. Coronal and sagittal reconstructions were obtained, - no comparisons. Total exam DLP = 1,654.46 mGy-cm. 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 The total knee arthroplasty does appear to be in good position and alignment without a definite complicating process, such as loosening. However, there is evidence of a left knee joint effusion of small size, etiology indeterminate. This should be correlated clinically, as the possibility of septic arthritis cannot be excluded. Degenerative changes are noted at the right knee joint with loss of joint space at the patellofemoral joint, hypertrophic changes, and some subchondral cystic changes noted at the femorotibial joint. Incidentally noted were calcifications in the arteries posteriorly bilaterally. IMPRESSION: 1. TKA on the left appears to be in satisfactory position and alignment with a small knee joint effusion noted - no other definite complicating process suggested. Study is somewhat limited by the hard beam artifact of the metallic components of the TKA. 2. Osteoarthritis right knee joint. 3. ASD. MTDD
[2019-03-18] MEDS ORDERED: Warfarin 5 MG Tab PO SCH (16:00)
[2019-03-18] MEDS: Acetaminophen 500 MG Tab PO SCH (17:36)
[2019-03-18] MEDS: cefTRIAXone 1 GM Vial IVPUSH SCH (17:38)
[2019-03-18] MEDS: Azithromycin 500 MG in Sodium Chloride 0.9% 250 ML IV SCH (17:52)
[2019-03-18] MEDS: atorvaSTATin 20 MG Tab PO SCH (21:26)
[2019-03-18] MEDS: Carboxymethylcellulose Sodium 1% Ophth Gel 15 ML Bottle EYEBOTH SCH (21:28)
[2019-03-19] MEDS: traMADol 50 MG Tab PO PRN ×2 (03:45→16:57)
[2019-03-19] MEDS: PARoxetine 20 MG Tab PO SCH (08:01)
[2019-03-19] MEDS: Ezetimibe 10 MG Tab PO SCH (08:01)
[2019-03-19] MEDS: Furosemide 20 MG Tab PO SCH (08:02)
[2019-03-19] MEDS: Multivitamin Tab PO SCH (08:02)
[2019-03-19] MEDS: Fish Oil/Omega-3 Fatty Acids 1 Gm Cap PO SCH (08:02)
[2019-03-19] MEDS: Aspirin 81 MG Tab.Chew PO SCH (08:02)
[2019-03-19] MEDS: Metoprolol Succinate 50 MG Tab.ER PO SCH (08:03)
--- NOTE | 2019-03-19 08:58 | PCM.PN ---
- General Info Date of Service: 03/19/19 Subjective Update: EARNESTINE is doing good this morning. Pain in the left knee and right elbow is is better. Functional Status: Reports: Pain Controlled - Review of Systems HEENT: Reports: No Symptoms Pulmonary: Reports: No Symptoms Cardiovascular: Reports: No Symptoms Gastrointestinal: Reports: No Symptoms - Patient Data Vitals - Most Recent: Last Vital Signs Temp 98.2 F 03/19/19 03:38 Pulse 99 03/19/19 08:03 Resp 20 03/19/19 03:38 BP 111/68 03/19/19 08:03 Pulse Ox 96 03/19/19 03:38 Weight - Most Recent: 85.457 kg I&O - Last 24 Hours: Intake & Output 03/18/19 03/19/19 03/19/19 22:59 06:59 14:59 Intake Total 1140 200 Output Total 650 700 Balance 490 -500 Lab Results Last 24 Hours: Laboratory Results - last 24 hr 03/18/19 03/19/19 03/19/19 Range/Units 10:40 06:10 06:10 WBC 14.3 H (4.5-12.0) X10-3/uL RBC 3.20 L (3.23-5.20) x10(6)uL Hgb 9.9 L (11.5-15.5) g/dL Hct 29.9 L (30.0-51.3) % MCV 93.2 (80-96) fL MCH 30.8 (27.7-33.6) pg MCHC 33.1 (32.2-35.4) g/dL RDW 15.7 H (11.5-15.5) % Plt Count 270 (125-369) X10(3)uL MPV 8.6 (7.4-10.4) fL Add Manual Diff Yes Neutrophils % (Manual) 94 H (46-82) % Band Neutrophils % 2 (0-6) % Lymphocytes % (Manual) 2 L (13-37) % Monocytes % (Manual) 2 L (4-12) % PT 35.1 H* (8.7-11.1) INR 3.67 H (0.89-1.13) Sodium 135 (135-145) mmol/L Potassium 3.9 (3.5-5.3) mmol/L Chloride 101 (100-110) mmol/L Carbon Dioxide 26 (21-32) mmol/L BUN 63 H D (7-18) mg/dL Creatinine 1.5 H (0.55-1.02) mg/dL Est Cr Clr Drug Dosing 23.92 mL/min Estimated GFR (MDRD) 33 L (>60) BUN/Creatinine Ratio 42.0 H (9-20) Glucose 107 (80-116) mg/dL Calcium 9.2 (8.6-10.2) mg/dL NT-Pro-B Natriuret Pep (<=450) pg/mL 03/19/19 03/19/19 Range/Units 06:10 06:10 WBC (4.5-12.0) X10-3/uL RBC (3.23-5.20) x10(6)uL Hgb (11.5-15.5) g/dL Hct (30.0-51.3) % MCV (80-96) fL MCH (27.7-33.6) pg MCHC (32.2-35.4) g/dL RDW (11.5-15.5) % Plt Count (125-369) X10(3)uL MPV (7.4-10.4) fL Add Manual Diff Neutrophils % (Manual) (46-82) % Band Neutrophils % (0-6) % Lymphocytes % (Manual) (13-37) % Monocytes % (Manual) (4-12) % PT 31.1 H (8.7-11.1) INR 3.25 H (0.89-1.13) Sodium (135-145) mmol/L Potassium (3.5-5.3) mmol/L Chloride (100-110) mmol/L Carbon Dioxide (21-32) mmol/L BUN (7-18) mg/dL Creatinine (0.55-1.02) mg/dL Est Cr Clr Drug Dosing mL/min Estimated GFR (MDRD) (>60) BUN/Creatinine Ratio (9-20) Glucose (80-116) mg/dL Calcium (8.6-10.2) mg/dL NT-Pro-B Natriuret Pep 7721 H* (<=450) pg/mL Hugo Results Last 24 Hours: Microbiology 03/17/19 18:55 Aerobic Blood Culture - Preliminary Blood - Venous - Lab Draw NO GROWTH AFTER 1 DAY Anaerobic Blood Culture - Preliminary NO GROWTH AFTER 1 DAY 03/17/19 18:50 Aerobic Blood Culture - Preliminary Blood - Venous NO GROWTH AFTER 1 DAY Anaerobic Blood Culture - Preliminary NO GROWTH AFTER 1 DAY Med Orders - Current: Current Medications Acetaminophen (Tylenol) 650 mg PO Q4H PRN PRN Reason: Pain (Mild 1-3)/fever Last Admin: 03/17/19 20:40 Dose: 650 mg Acetaminophen (Tylenol Extra Strength) 1,000 mg PO WITHDINNER [facility] Last Admin: 03/18/19 17:36 Dose: 1,000 mg Artificial Tears (Refresh Liquigel 1%) 0 ml EYEBOTH BEDTIME [facility] Last Admin: 03/18/19 21:28 Dose: 1 drop Aspirin (Aspirin) 81 mg PO DAILY [facility] Last Admin: 03/19/19 08:02 Dose: 81 mg Atorvastatin Calcium (Lipitor) 60 mg PO BEDTIME [facility] Last Admin: 03/18/19 21:26 Dose: 60 mg Ceftriaxone Sodium (Rocephin) 1 gm IVPUSH Q24H [facility] Last Admin: 03/18/19 17:38 Dose: 1 gm Ezetimibe (Zetia) 10 mg PO DAILY [facility] Last Admin: 03/19/19 08:01 Dose: 10 mg Fish Oil (Fish Oil) 1 gm PO DAILY [facility] Last Admin: 03/19/19 08:02 Dose: 1 gm Furosemide (Lasix) 20 mg PO DAILY [facility] Last Admin: 03/19/19 08:02 Dose: 20 mg Azithromycin 500 mg/ Sodium (Chloride) 250 mls @ 250 mls/hr IV Q24H [facility] Last Admin: 03/18/19 17:52 Dose: 250 mls/hr Sodium Chloride (Normal Saline) 1,000 mls @ 2,000 mls/hr IV ASDIRECTED [facility] Last Infusion: 03/18/19 00:25 Dose: 125 mls/hr Influenza Virus Vaccine (Fluzone Quad 7501-1059 Syringe) 60 mcg IM .ONCE ONE Stop: 03/19/19 09:01 Loperamide HCl (Imodium) 2 mg PO ASDIRECTED PRN PRN Reason: LOOSE STOOLS Metoprolol Succinate (Toprol Xl) 50 mg PO DAILY [facility] Last Admin: 03/19/19 08:03 Dose: 50 mg Multivitamins/Minerals/Vitamin C (Tab-A-Bobby) 1 tab PO DAILY [facility] Last Admin: 03/19/19 08:02 Dose: 1 tab Paroxetine HCl (Paxil) 40 mg PO DAILY [facility] Last Admin: 03/19/19 08:01 Dose: 40 mg Sodium Chloride (Saline Flush) 10 ml FLUSH ASDIRECTED PRN PRN Reason: Keep Vein Open Tramadol HCl (Ultram) 50 mg PO Q8H PRN PRN Reason: Pain Last Admin: 03/19/19 03:45 Dose: 50 mg Warfarin Sodium (Coumadin Sliding Scale) 1 each PO ASDIRECTED [facility] Discontinued Medications Sodium Chloride (Normal Saline) 1,000 mls @ 500 mls/hr IV ASDIRECTED [facility] Last Admin: 03/17/19 16:00 Dose: 500 mls/hr Ceftriaxone Sodium 1 gm/ (Sodium Chloride) 50 mls @ 200 mls/hr IV Q24H [facility] Last Admin: 03/17/19 18:17 Dose: 200 mls/hr Sodium Chloride (Normal Saline) 1,000 mls @ 125 mls/hr IV ASDIRECTED [facility] Last Admin: 03/18/19 07:05 Dose: 125 mls/hr Influenza Virus Vaccine (Pharmacy To Dose - Influenza Vaccine) 1 each IM ONETIME ONE Stop: 03/18/19 18:19 - Exam Quality Assessment: Supplemental Oxygen General: Alert HEENT: Pupils Equal Neck: Supple Lungs: Crackles, Rales Cardiovascular: Regular Rate Skin: Warm Neurological: No New Focal Deficit Psy/Mental Status: Alert - Problem List & Annotations (1) Pneumonia SNOMED Code(s): 575100391 Code(s): J18.9 - PNEUMONIA, UNSPECIFIED ORGANISM Status: Acute Current Visit: Yes Annotation/Comment:: Admit, start antibx, provide supplemental 02 (2) Knee pain SNOMED Code(s): 78775882 Code(s): M25.569 - PAIN IN UNSPECIFIED KNEE Status: Acute Current Visit: Yes Qualifiers: Chronicity: acute Laterality: left Qualified Code(s): M25.562 - Pain in left knee (3) CAD (coronary artery disease) SNOMED Code(s): 92489926 Code(s): I25.10 - ATHSCL HEART DISEASE OF [place] CORONARY ARTERY W/O ANG PCTRS Status: Chronic Current Visit: Yes Qualifiers: Coronary Disease-Associated Artery/Lesion type: bypass graft [place] vs. transplanted heart: [place] heart Associated angina: without angina Qualified Code(s): I25.810 - Atherosclerosis of coronary artery bypass graft(s) without angina pectoris (4) CHF (congestive heart failure) SNOMED Code(s): 82500061 Code(s): I50.9 - HEART FAILURE, UNSPECIFIED Status: Acute Current Visit: Yes Qualifiers: Heart failure type: systolic (5) HTN (hypertension) SNOMED Code(s): 00439057 Code(s): I10 - ESSENTIAL (PRIMARY) HYPERTENSION Status: Chronic Current Visit: Yes Qualifiers: Hypertension type: essential hypertension Qualified Code(s): I10 - Essential (primary) hypertension (6) Prerenal azotemia SNOMED Code(s): 798081312 Code(s): R79.89 - OTHER SPECIFIED ABNORMAL FINDINGS OF BLOOD CHEMISTRY Status: Acute Current Visit: Yes Annotation/Comment:: Rehydration with NS. (7) Afib SNOMED Code(s): 74695117 Code(s): I48.91 - UNSPECIFIED ATRIAL FIBRILLATION Status: Acute Current Visit: Yes Qualifiers: Atrial fibrillation type: paroxysmal Qualified Code(s): I48.0 - Paroxysmal atrial fibrillation (8) PEEWEE (obstructive sleep apnea) SNOMED Code(s): 93316882 Code(s): G47.33 - OBSTRUCTIVE SLEEP APNEA (ADULT) (PEDIATRIC) Status: Acute Current Visit: Yes (9) Valvular heart disease Status: Acute Current Visit: Yes (10) Osteoarthritis SNOMED Code(s): 751427062 Code(s): M19.90 - UNSPECIFIED OSTEOARTHRITIS, UNSPECIFIED SITE Status: Acute Current Visit: Yes (11) DEMAR (acute kidney injury) SNOMED Code(s): 44248289, 48668087 Code(s): N17.9 - ACUTE KIDNEY FAILURE, UNSPECIFIED Status: Acute Current Visit: Yes - Problem List Review Problem List Initiated/Reviewed/Updated: Yes - My Orders Last 24 Hours: My Active Orders 03/18/19 08:53 OT Evaluation and Treatment [CONS] Routine PT Evaluation and Treatment [CONS] Routine 03/18/19 08:56 traMADol [Ultram] 50 mg PO Q8H PRN 03/18/19 09:00 Aspirin 81 mg PO DAILY Ezetimibe [Zetia] 10 mg PO DAILY Metoprolol Succinate [Toprol XL] 50 mg PO DAILY Multivitamins [Tab-A-Bobby] 1 tab PO DAILY PARoxetine [Paxil] 40 mg PO DAILY 03/18/19 09:15 Fish Oil/[place]-3 Fatty Acids [Fish Oil] 1 gm PO DAILY Loperamide [Imodium] 2 mg PO ASDIRECTED PRN 03/18/19 09:30 Warfarin Sliding Scale [Coumadin Sliding Scale] 1 each PO ASDIRECTED 03/18/19 18:00 Acetaminophen [Tylenol Extra Strength] 1,000 mg PO WITHDINNER 03/18/19 18:19 Influenza Vaccine Charge [RC] .DISCHARGE 03/18/19 21:00 Carboxymethylcellulose Sodium [Refresh Liquigel 1%] 0 ml EYEBOTH BEDTIME atorvaSTATin [Lipitor] 60 mg PO BEDTIME 03/19/19 08:42 Weight Daily [Height and Weight] [] .Q06 03/19/19 09:00 FLU Vacc [id number](6MOS+)/PF [Fluzone Quad Syringe] 60 mcg IM .ONCE ONE Furosemide [Lasix] 20 mg PO DAILY 03/20/19 05:11 BASIC METABOLIC PANEL,BMP [CHEM] AM CBC WITH AUTO DIFF [HEME] AM PRO B-TYPE NATRIUR PEPT,BNPPRO [CHEM] DAILY 03/20/19 09:18 INR,PT,PROTHROMBIN TIME [COAG] DAILY 03/21/19 05:11 PRO B-TYPE NATRIUR PEPT,BNPPRO [CHEM] DAILY 03/22/19 05:11 PRO B-TYPE NATRIUR PEPT,BNPPRO [CHEM] DAILY - Plan Plan:: I looked at the x-ray which showed pneumonia, and the kidney injuries better.Continue with current meds,and encourage IS. Use Tramadol prn
[2019-03-19] MEDS ORDERED: FLU Vacc QS2019-20(6MOS+)/PF 60 MCG/0.5 ML SYRINGE IM ONE (09:00)
[2019-03-19] MEDS: cefTRIAXone 1 GM Vial IVPUSH SCH (17:02)
[2019-03-19] MEDS: Azithromycin 500 MG in Sodium Chloride 0.9% 250 ML IV SCH (17:47)
[2019-03-19] MEDS: Sodium Chloride 0.9% 10 ML Syringe FLUSH PRN ×2 (17:48→18:58)
[2019-03-19] MEDS: Acetaminophen 500 MG Tab PO SCH (19:17)
[2019-03-19] MEDS: Acetaminophen 325 MG Tab PO PRN (21:57)
[2019-03-19] MEDS: atorvaSTATin 20 MG Tab PO SCH (21:58)
[2019-03-19] MEDS: Carboxymethylcellulose Sodium 1% Ophth Gel 15 ML Bottle EYEBOTH SCH (21:59)
[2019-03-20] MEDS ORDERED: Furosemide 40 MG/4 ML VIAL IVPUSH ONE (07:32)
--- NOTE | 2019-03-20 08:01 | PCM.PN ---
- General Info Date of Service: 03/20/19 Subjective Update: Shira is doing better today, still has some cough and shortness of breath,no fever. Blood cultures -one bottle is growing up unidentified organism Functional Status: Reports: Pain Controlled - Review of Systems General: Reports: No Symptoms HEENT: Reports: No Symptoms Pulmonary: Reports: Shortness of Breath, Sputum Cardiovascular: Reports: No Symptoms Gastrointestinal: Reports: No Symptoms Genitourinary: Reports: No Symptoms - Patient Data Vitals - Most Recent: Last Vital Signs Temp 97.7 F 03/20/19 04:00 Pulse 98 03/20/19 04:00 Resp 20 03/20/19 04:00 BP 113/72 03/20/19 04:00 Pulse Ox 96 03/20/19 04:00 Weight - Most Recent: 88.451 kg I&O - Last 24 Hours: Intake & Output 03/19/19 03/20/19 03/20/19 22:59 06:59 14:59 Intake Total 250 0 Balance 250 0 Lab Results Last 24 Hours: Laboratory Results - last 24 hr 03/20/19 03/20/19 03/20/19 Range/Units 06:20 06:20 06:20 WBC 14.7 H (4.5-12.0) X10-3/uL RBC 3.21 L (3.23-5.20) x10(6)uL Hgb 9.9 L (11.5-15.5) g/dL Hct 29.6 L (30.0-51.3) % MCV 92.5 (80-96) fL MCH 31.0 (27.7-33.6) pg MCHC 33.5 (32.2-35.4) g/dL RDW 15.6 H (11.5-15.5) % Plt Count 326 (125-369) X10(3)uL MPV 8.2 (7.4-10.4) fL Add Manual Diff Yes Neutrophils % (Manual) 82 (46-82) % Band Neutrophils % 2 (0-6) % Lymphocytes % (Manual) 11 L (13-37) % Monocytes % (Manual) 4 (4-12) % Eosinophils % (Manual) 1 (0-5) % PT 26.3 H (8.7-11.1) INR 2.74 H (0.89-1.13) Sodium 137 (135-145) mmol/L Potassium 3.8 (3.5-5.3) mmol/L Chloride 102 (100-110) mmol/L Carbon Dioxide 29 (21-32) mmol/L BUN 49 H D (7-18) mg/dL Creatinine 1.2 H (0.55-1.02) mg/dL Est Cr Clr Drug Dosing 29.90 mL/min Estimated GFR (MDRD) 43 L (>60) BUN/Creatinine Ratio 40.8 H (9-20) Glucose 109 (80-116) mg/dL Calcium 8.9 (8.6-10.2) mg/dL NT-Pro-B Natriuret Pep (<=450) pg/mL 03/20/19 Range/Units 06:20 WBC (4.5-12.0) X10-3/uL RBC (3.23-5.20) x10(6)uL Hgb (11.5-15.5) g/dL Hct (30.0-51.3) % MCV (80-96) fL MCH (27.7-33.6) pg MCHC (32.2-35.4) g/dL RDW (11.5-15.5) % Plt Count (125-369) X10(3)uL MPV (7.4-10.4) fL Add Manual Diff Neutrophils % (Manual) (46-82) % Band Neutrophils % (0-6) % Lymphocytes % (Manual) (13-37) % Monocytes % (Manual) (4-12) % Eosinophils % (Manual) (0-5) % PT (8.7-11.1) INR (0.89-1.13) Sodium (135-145) mmol/L Potassium (3.5-5.3) mmol/L Chloride (100-110) mmol/L Carbon Dioxide (21-32) mmol/L BUN (7-18) mg/dL Creatinine (0.55-1.02) mg/dL Est Cr Clr Drug Dosing mL/min Estimated GFR (MDRD) (>60) BUN/Creatinine Ratio (9-20) Glucose (80-116) mg/dL Calcium (8.6-10.2) mg/dL NT-Pro-B Natriuret Pep 9975 H* (<=450) pg/mL Hugo Results Last 24 Hours: Microbiology 03/17/19 18:50 Aerobic Blood Culture - Preliminary Blood - Venous NO GROWTH AFTER 2 DAYS Anaerobic Blood Culture - Preliminary NO GROWTH AFTER 2 DAYS 03/17/19 18:55 Aerobic Blood Culture - Preliminary Blood - Venous - Lab Draw NO GROWTH AFTER 2 DAYS Anaerobic Blood Culture - Preliminary Unidentified Organism Med Orders - Current: Current Medications Acetaminophen (Tylenol) 650 mg PO Q4H PRN PRN Reason: Pain (Mild 1-3)/fever Last Admin: 03/19/19 21:57 Dose: 650 mg Acetaminophen (Tylenol Extra Strength) 1,000 mg PO WITHDINNER [facility] Last Admin: 03/19/19 19:17 Dose: 1,000 mg Artificial Tears (Refresh Liquigel 1%) 0 ml EYEBOTH BEDTIME [facility] Last Admin: 03/19/19 21:59 Dose: 1 drop Aspirin (Aspirin) 81 mg PO DAILY [facility] Last Admin: 03/19/19 08:02 Dose: 81 mg Atorvastatin Calcium (Lipitor) 60 mg PO BEDTIME [facility] Last Admin: 03/19/19 21:58 Dose: 60 mg Ceftriaxone Sodium (Rocephin) 1 gm IVPUSH Q24H [facility] Last Admin: 03/19/19 17:02 Dose: 1 gm Ezetimibe (Zetia) 10 mg PO DAILY [facility] Last Admin: 03/19/19 08:01 Dose: 10 mg Fish Oil (Fish Oil) 1 gm PO DAILY [facility] Last Admin: 03/19/19 08:02 Dose: 1 gm Furosemide (Lasix) 20 mg PO DAILY [facility] Last Admin: 03/19/19 08:02 Dose: 20 mg Loperamide HCl (Imodium) 2 mg PO ASDIRECTED PRN PRN Reason: LOOSE STOOLS Metoprolol Succinate (Toprol Xl) 50 mg PO DAILY [facility] Last Admin: 03/19/19 08:03 Dose: 50 mg Multivitamins/Minerals/Vitamin C (Tab-A-Bobby) 1 tab PO DAILY [facility] Last Admin: 03/19/19 08:02 Dose: 1 tab Paroxetine HCl (Paxil) 40 mg PO DAILY [facility] Last Admin: 03/19/19 08:01 Dose: 40 mg Sodium Chloride (Saline Flush) 10 ml FLUSH ASDIRECTED PRN PRN Reason: Keep Vein Open Last Admin: 03/19/19 18:58 Dose: 10 ml Tramadol HCl (Ultram) 50 mg PO Q8H PRN PRN Reason: Pain Last Admin: 03/19/19 16:57 Dose: 50 mg Warfarin Sodium (Coumadin Sliding Scale) 1 each PO ASDIRECTED [facility] Warfarin Sodium (Coumadin) 2.5 mg PO 1600 FLAKITA Stop: 03/20/19 16:01 Discontinued Medications Furosemide (Lasix) 40 mg IVPUSH NOW ONE Stop: 03/20/19 07:33 Sodium Chloride (Normal Saline) 1,000 mls @ 500 mls/hr IV ASDIRECTED [facility] Last Admin: 03/17/19 16:00 Dose: 500 mls/hr Azithromycin 500 mg/ Sodium (Chloride) 250 mls @ 250 mls/hr IV Q24H [facility] Last Admin: 03/19/19 17:47 Dose: 250 mls/hr Ceftriaxone Sodium 1 gm/ (Sodium Chloride) 50 mls @ 200 mls/hr IV Q24H [facility] Last Admin: 03/17/19 18:17 Dose: 200 mls/hr Sodium Chloride (Normal Saline) 1,000 mls @ 2,000 mls/hr IV ASDIRECTED [facility] Last Infusion: 03/18/19 00:25 Dose: 125 mls/hr Sodium Chloride (Normal Saline) 1,000 mls @ 125 mls/hr IV ASDIRECTED [facility] Last Admin: 03/18/19 07:05 Dose: 125 mls/hr Influenza Virus Vaccine (Pharmacy To Dose - Influenza Vaccine) 1 each IM ONETIME ONE Stop: 03/18/19 18:19 Influenza Virus Vaccine (Fluzone Quad 9618-4808 Syringe) 60 mcg IM .ONCE ONE Stop: 03/19/19 09:01 Last Admin: 03/19/19 09:36 Dose: Not Given - Exam General: Alert HEENT: Pupils Equal Neck: Supple Lungs: Crackles, Rales Cardiovascular: Regular Rate GI/Abdominal Exam: Soft - Problem List & Annotations (1) Pneumonia SNOMED Code(s): 806768463 Code(s): J18.9 - PNEUMONIA, UNSPECIFIED ORGANISM Status: Acute Current Visit: Yes Annotation/Comment:: Admit, start antibx, provide supplemental 02 (2) Knee pain SNOMED Code(s): 21622484 Code(s): M25.569 - PAIN IN UNSPECIFIED KNEE Status: Acute Current Visit: Yes Qualifiers: Chronicity: acute Laterality: left Qualified Code(s): M25.562 - Pain in left knee (3) CAD (coronary artery disease) SNOMED Code(s): 08647209 Code(s): I25.10 - ATHSCL HEART DISEASE OF [place] CORONARY ARTERY W/O ANG PCTRS Status: Chronic Current Visit: Yes Qualifiers: Coronary Disease-Associated Artery/Lesion type: bypass graft [place] vs. transplanted heart: [place] heart Associated angina: without angina Qualified Code(s): I25.810 - Atherosclerosis of coronary artery bypass graft(s) without angina pectoris (4) CHF (congestive heart failure) SNOMED Code(s): 48227643 Code(s): I50.9 - HEART FAILURE, UNSPECIFIED Status: Acute Current Visit: Yes Qualifiers: Heart failure type: systolic (5) HTN (hypertension) SNOMED Code(s): 46721314 Code(s): I10 - ESSENTIAL (PRIMARY) HYPERTENSION Status: Chronic Current Visit: Yes Qualifiers: Hypertension type: essential hypertension Qualified Code(s): I10 - Essential (primary) hypertension (6) Prerenal azotemia SNOMED Code(s): 915324147 Code(s): R79.89 - OTHER SPECIFIED ABNORMAL FINDINGS OF BLOOD CHEMISTRY Status: Acute Current Visit: Yes Annotation/Comment:: Rehydration with NS. (7) Afib SNOMED Code(s): 84153923 Code(s): I48.91 - UNSPECIFIED ATRIAL FIBRILLATION Status: Acute Current Visit: Yes Qualifiers: Atrial fibrillation type: paroxysmal Qualified Code(s): I48.0 - Paroxysmal atrial fibrillation (8) PEEWEE (obstructive sleep apnea) SNOMED Code(s): 27309007 Code(s): G47.33 - OBSTRUCTIVE SLEEP APNEA (ADULT) (PEDIATRIC) Status: Acute Current Visit: Yes (9) Valvular heart disease Status: Acute Current Visit: Yes (10) Osteoarthritis SNOMED Code(s): 386429818 Code(s): M19.90 - UNSPECIFIED OSTEOARTHRITIS, UNSPECIFIED SITE Status: Acute Current Visit: Yes (11) DEMAR (acute kidney injury) SNOMED Code(s): 00134973, 81735486 Code(s): N17.9 - ACUTE KIDNEY FAILURE, UNSPECIFIED Status: Acute Current Visit: Yes (12) Bacteremia SNOMED Code(s): 4858649 Code(s): R78.81 - BACTEREMIA Status: Acute Current Visit: Yes - Problem List Review Problem List Initiated/Reviewed/Updated: Yes - My Orders Last 24 Hours: My Active Orders 03/19/19 08:42 Weight Daily [Height and Weight] [RC] .Q06 03/19/19 09:00 Furosemide [Lasix] 20 mg PO DAILY 03/20/19 07:32 Chest 2V [CR] Routine 03/20/19 07:37 IS (RT) [RT Incentive Spirometry] [RC] Q4HWA 03/21/19 05:11 CBC WITH AUTO DIFF [HEME] AM COMPREHENSIVE METABOLIC PN,CMP [CHEM] AM PRO B-TYPE NATRIUR PEPT,BNPPRO [CHEM] DAILY 03/22/19 05:11 PRO B-TYPE NATRIUR PEPT,BNPPRO [CHEM] DAILY - Plan Plan:: Discontinue azithromycin, but continue the Rocephin IV. Encourage IS. Repeat chest x-ray, labs. I will see elected to give her 1 dose of Lasix for diuresis
[2019-03-20] MEDS: Sodium Chloride 0.9% 10 ML Syringe FLUSH PRN ×2 (08:39→17:49)
[2019-03-20] MEDS: traMADol 50 MG Tab PO PRN ×2 (08:39→16:41)
[2019-03-20] MEDS: Metoprolol Succinate 50 MG Tab.ER PO SCH (08:43)
[2019-03-20] MEDS: Multivitamin Tab PO SCH (08:43)
[2019-03-20] MEDS: PARoxetine 20 MG Tab PO SCH (08:43)
[2019-03-20] MEDS: Fish Oil/Omega-3 Fatty Acids 1 Gm Cap PO SCH (08:44)
[2019-03-20] MEDS: Aspirin 81 MG Tab.Chew PO SCH (08:44)
[2019-03-20] MEDS: Ezetimibe 10 MG Tab PO SCH (08:44)
[2019-03-20] MEDS: Furosemide 20 MG Tab PO SCH (08:47)
[2019-03-20] MEDS ORDERED: Warfarin 2.5 MG Tab PO SCH (16:00)
[2019-03-20] MEDS: cefTRIAXone 1 GM Vial IVPUSH SCH (17:50)
[2019-03-20] MEDS: Acetaminophen 500 MG Tab PO SCH (18:59)
[2019-03-20] MEDS: Carboxymethylcellulose Sodium 1% Ophth Gel 15 ML Bottle EYEBOTH SCH (20:53)
[2019-03-20] MEDS: atorvaSTATin 20 MG Tab PO SCH (20:53)
[2019-03-21] MEDS: traMADol 50 MG Tab PO PRN ×2 (04:00→18:24)
[2019-03-21] MEDS: Sodium Chloride 0.9% 10 ML Syringe FLUSH PRN ×4 (07:35→17:19)
[2019-03-21] MEDS: Ezetimibe 10 MG Tab PO SCH (08:19)
[2019-03-21] MEDS: Multivitamin Tab PO SCH (08:19)
[2019-03-21] MEDS: Furosemide 20 MG Tab PO SCH (08:19)
[2019-03-21] MEDS: Fish Oil/Omega-3 Fatty Acids 1 Gm Cap PO SCH (08:19)
[2019-03-21] MEDS: PARoxetine 20 MG Tab PO SCH (08:19)
[2019-03-21] MEDS: Metoprolol Succinate 50 MG Tab.ER PO SCH (08:19)
[2019-03-21] MEDS: Aspirin 81 MG Tab.Chew PO SCH (08:19)
[2019-03-21] MEDS ORDERED: Metolazone 2.5 MG Tab PO ONE (08:41)
--- NOTE | 2019-03-21 08:48 | PCM.PN ---
- General Info Date of Service: 03/21/19 Subjective Update: Shira feels much better today. Functional Status: Reports: Pain Controlled - Review of Systems Pulmonary: Reports: No Symptoms Cardiovascular: Reports: No Symptoms Gastrointestinal: Reports: No Symptoms - Patient Data Vitals - Most Recent: Last Vital Signs Temp 97.4 F 03/21/19 00:00 Pulse 115 H 03/21/19 08:19 Resp 20 03/21/19 00:00 BP 122/78 03/21/19 08:19 Pulse Ox 92 L 03/21/19 04:01 Weight - Most Recent: 87.26 kg I&O - Last 24 Hours: Intake & Output 03/20/19 03/21/19 03/21/19 22:59 06:59 14:59 Intake Total 0 Balance 0 Lab Results Last 24 Hours: Laboratory Results - last 24 hr 03/21/19 03/21/19 03/21/19 Range/Units 06:40 06:40 06:40 WBC 14.7 H (4.5-12.0) X10-3/uL RBC 3.23 (3.23-5.20) x10(6)uL Hgb 10.0 L (11.5-15.5) g/dL Hct 30.0 (30.0-51.3) % MCV 93.1 (80-96) fL MCH 31.1 (27.7-33.6) pg MCHC 33.4 (32.2-35.4) g/dL RDW 15.2 (11.5-15.5) % Plt Count 406 H (125-369) X10(3)uL MPV 8.2 (7.4-10.4) fL Add Manual Diff Yes Neutrophils % (Manual) 86 H (46-82) % Lymphocytes % (Manual) 7 L (13-37) % Monocytes % (Manual) 7 (4-12) % Sodium 137 (135-145) mmol/L Potassium 3.9 (3.5-5.3) mmol/L Chloride 102 (100-110) mmol/L Carbon Dioxide 28 (21-32) mmol/L BUN 46 H (7-18) mg/dL Creatinine 1.4 H (0.55-1.02) mg/dL Est Cr Clr Drug Dosing 25.63 mL/min Estimated GFR (MDRD) 36 L (>60) BUN/Creatinine Ratio 32.9 H (9-20) Glucose 101 (80-116) mg/dL Calcium 8.7 (8.6-10.2) mg/dL Total Bilirubin 0.5 (0.1-1.3) mg/dL AST 119 H (5-25) IU/L ALT 98 H D (12-36) U/L Alkaline Phosphatase 111 (56-112) IU/L NT-Pro-B Natriuret Pep 13933 H* (<=450) pg/mL Total Protein 6.1 (6.0-8.0) g/dL Albumin 1.7 L* (3.2-4.6) g/dL Globulin 4.4 g/dL Albumin/Globulin Ratio 0.4 Hugo Results Last 24 Hours: Microbiology 03/17/19 18:55 Aerobic Blood Culture - Preliminary Blood - Venous - Lab Draw NO GROWTH AFTER 3 DAYS Anaerobic Blood Culture - Preliminary Gram Positive Cocci 03/17/19 18:50 Aerobic Blood Culture - Preliminary Blood - Venous NO GROWTH AFTER 3 DAYS Anaerobic Blood Culture - Preliminary NO GROWTH AFTER 3 DAYS Med Orders - Current: Current Medications Acetaminophen (Tylenol) 650 mg PO Q4H PRN PRN Reason: Pain (Mild 1-3)/fever Last Admin: 03/19/19 21:57 Dose: 650 mg Acetaminophen (Tylenol Extra Strength) 1,000 mg PO [facility] Last Admin: 03/20/19 18:59 Dose: 1,000 mg Artificial Tears (Refresh Liquigel 1%) 0 ml EYEBOTH BEDTIME [facility] Last Admin: 03/20/19 20:53 Dose: 1 drop Aspirin (Aspirin) 81 mg PO DAILY [facility] Last Admin: 03/21/19 08:19 Dose: 81 mg Atorvastatin Calcium (Lipitor) 60 mg PO BEDTIME [facility] Last Admin: 03/20/19 20:53 Dose: 60 mg Ceftriaxone Sodium (Rocephin) 1 gm IVPUSH Q24H [facility] Last Admin: 03/20/19 17:50 Dose: 1 gm Ezetimibe (Zetia) 10 mg PO DAILY [facility] Last Admin: 03/21/19 08:19 Dose: 10 mg Fish Oil (Fish Oil) 1 gm PO DAILY [facility] Last Admin: 03/21/19 08:19 Dose: 1 gm Furosemide (Lasix) 20 mg PO DAILY [facility] Last Admin: 03/21/19 08:19 Dose: 20 mg Furosemide (Lasix) 20 mg IVPUSH BID [facility] Influenza Virus Vaccine (Fluzone Quad 7966-7937 Syringe) 60 mcg IM .ONCE ONE Stop: 03/21/19 09:01 Loperamide HCl (Imodium) 2 mg PO ASDIRECTED PRN PRN Reason: LOOSE STOOLS Metolazone (Zaroxolyn) 2.5 mg PO ONETIME ONE Stop: 03/21/19 08:42 Metoprolol Succinate (Toprol Xl) 50 mg PO DAILY [facility] Last Admin: 03/21/19 08:19 Dose: 50 mg Multivitamins/Minerals/Vitamin C (Tab-A-Bobby) 1 tab PO DAILY [facility] Last Admin: 03/21/19 08:19 Dose: 1 tab Paroxetine HCl (Paxil) 40 mg PO DAILY [facility] Last Admin: 03/21/19 08:19 Dose: 40 mg Sodium Chloride (Saline Flush) 10 ml FLUSH ASDIRECTED PRN PRN Reason: Keep Vein Open Last Admin: 03/21/19 07:35 Dose: 10 ml Tramadol HCl (Ultram) 50 mg PO Q8H PRN PRN Reason: Pain Last Admin: 03/21/19 04:00 Dose: 50 mg Warfarin Sodium (Coumadin Sliding Scale) 1 each PO ASDIRECTED [facility] Warfarin Sodium (Coumadin) 2.5 mg PO ONETIME ONE Stop: 03/21/19 16:01 Discontinued Medications Furosemide (Lasix) 40 mg IVPUSH NOW ONE Stop: 03/20/19 07:33 Last Admin: 03/20/19 08:39 Dose: 40 mg Sodium Chloride (Normal Saline) 1,000 mls @ 500 mls/hr IV ASDIRECTED [facility] Last Admin: 03/17/19 16:00 Dose: 500 mls/hr Azithromycin 500 mg/ Sodium (Chloride) 250 mls @ 250 mls/hr IV Q24H [facility] Last Admin: 03/19/19 17:47 Dose: 250 mls/hr Ceftriaxone Sodium 1 gm/ (Sodium Chloride) 50 mls @ 200 mls/hr IV Q24H [facility] Last Admin: 03/17/19 18:17 Dose: 200 mls/hr Sodium Chloride (Normal Saline) 1,000 mls @ 2,000 mls/hr IV ASDIRECTED [facility] Last Infusion: 03/18/19 00:25 Dose: 125 mls/hr Sodium Chloride (Normal Saline) 1,000 mls @ 125 mls/hr IV ASDIRECTED [facility] Last Admin: 03/18/19 07:05 Dose: 125 mls/hr Influenza Virus Vaccine (Pharmacy To Dose - Influenza Vaccine) 1 each IM ONETIME ONE Stop: 03/18/19 18:19 Influenza Virus Vaccine (Fluzone Quad Syringe) 60 mcg IM .ONCE ONE Stop: 03/19/19 09:01 Last Admin: 03/19/19 09:36 Dose: Not Given Warfarin Sodium (Coumadin) 2.5 mg PO 1600 [facility] Stop: 03/20/19 16:01 Last Admin: 03/20/19 16:44 Dose: 2.5 mg - Exam General: Alert HEENT: Pupils Equal Lungs: Crackles Cardiovascular: Regular Rate, Irregular Rhythm - Problem List & Annotations (1) Pneumonia SNOMED Code(s): 450414340 Code(s): J18.9 - PNEUMONIA, UNSPECIFIED ORGANISM Status: Acute Current Visit: Yes Annotation/Comment:: Admit, start antibx, provide supplemental 02 (2) Knee pain SNOMED Code(s): 40227250 Code(s): M25.569 - PAIN IN UNSPECIFIED KNEE Status: Acute Current Visit: Yes Qualifiers: Chronicity: acute Laterality: left Qualified Code(s): M25.562 - Pain in left knee (3) CAD (coronary artery disease) SNOMED Code(s): 29253030 Code(s): I25.10 - ATHSCL HEART DISEASE OF [place] CORONARY ARTERY W/O ANG PCTRS Status: Chronic Current Visit: Yes Qualifiers: Coronary Disease-Associated Artery/Lesion type: bypass graft [place] vs. transplanted heart: [place] heart Associated angina: without angina Qualified Code(s): I25.810 - Atherosclerosis of coronary artery bypass graft(s) without angina pectoris (4) CHF (congestive heart failure) SNOMED Code(s): 02768435 Code(s): I50.9 - HEART FAILURE, UNSPECIFIED Status: Acute Current Visit: Yes Qualifiers: Heart failure type: systolic (5) HTN (hypertension) SNOMED Code(s): 10682559 Code(s): I10 - ESSENTIAL (PRIMARY) HYPERTENSION Status: Chronic Current Visit: Yes Qualifiers: Hypertension type: essential hypertension Qualified Code(s): I10 - Essential (primary) hypertension (6) Prerenal azotemia SNOMED Code(s): 765997951 Code(s): R79.89 - OTHER SPECIFIED ABNORMAL FINDINGS OF BLOOD CHEMISTRY Status: Acute Current Visit: Yes Annotation/Comment:: Rehydration with NS. (7) Afib SNOMED Code(s): 63131791 Code(s): I48.91 - UNSPECIFIED ATRIAL FIBRILLATION Status: Acute Current Visit: Yes Qualifiers: Atrial fibrillation type: paroxysmal Qualified Code(s): I48.0 - Paroxysmal atrial fibrillation (8) PEEWEE (obstructive sleep apnea) SNOMED Code(s): 25678573 Code(s): G47.33 - OBSTRUCTIVE SLEEP APNEA (ADULT) (PEDIATRIC) Status: Acute Current Visit: Yes (9) Valvular heart disease Status: Acute Current Visit: Yes (10) Osteoarthritis SNOMED Code(s): 075503327 Code(s): M19.90 - UNSPECIFIED OSTEOARTHRITIS, UNSPECIFIED SITE Status: Acute Current Visit: Yes (11) DEMAR (acute kidney injury) SNOMED Code(s): 28130595, 31795772 Code(s): N17.9 - ACUTE KIDNEY FAILURE, UNSPECIFIED Status: Acute Current Visit: Yes (12) Bacteremia SNOMED Code(s): 0049304 Code(s): R78.81 - BACTEREMIA Status: Acute Current Visit: Yes - Problem List Review Problem List Initiated/Reviewed/Updated: Yes - My Orders Last 24 Hours: My Active Orders 03/20/19 13:20 Vital Signs [RC] PER UNIT ROUTINE 03/21/19 08:41 metOLazone [Zaroxolyn] 2.5 mg PO ONETIME ONE 03/21/19 09:00 FLU Vacc [id number](6MOS+)/PF [Fluzone Quad Syringe] 60 mcg IM .ONCE ONE Furosemide [Lasix] 20 mg IVPUSH BID 03/21/19 16:00 Warfarin [Coumadin] 2.5 mg PO ONETIME ONE 03/22/19 05:11 COMPREHENSIVE METABOLIC PN,CMP [CHEM] AM PRO B-TYPE NATRIUR PEPT,BNPPRO [CHEM] DAILY - Plan Plan:: Continue the Rocephin IV. Encourage IS. Repeat chest x-ray was not changed. I am still waiting for final identity of organism. Give Lasix today.Possible discharge tomorrow.
[2019-03-21] MEDS ORDERED: FLU Vacc QS2019-20(6MOS+)/PF 60 MCG/0.5 ML SYRINGE IM ONE (09:00)
[2019-03-21] MEDS: Furosemide 20 MG/2 ML VIAL IVPUSH SCH ×2 (09:42→14:21)
[2019-03-21] MEDS ORDERED: Warfarin 2.5 MG Tab PO ONE (16:00)
[2019-03-21] MEDS: cefTRIAXone 1 GM Vial IVPUSH SCH (17:19)
[2019-03-21] MEDS: Acetaminophen 500 MG Tab PO SCH (17:20)
[2019-03-21] MEDS: atorvaSTATin 20 MG Tab PO SCH (21:23)
[2019-03-21] MEDS: Carboxymethylcellulose Sodium 1% Ophth Gel 15 ML Bottle EYEBOTH SCH (21:24)
[2019-03-22] MEDS: traMADol 50 MG Tab PO PRN (05:45)
[2019-03-22] MEDS: Sodium Chloride 0.9% 10 ML Syringe FLUSH PRN (07:56)
[2019-03-22] MEDS: Furosemide 20 MG/2 ML VIAL IVPUSH SCH (07:57)
[2019-03-22] MEDS: Fish Oil/Omega-3 Fatty Acids 1 Gm Cap PO SCH (07:59)
[2019-03-22] MEDS: Metoprolol Succinate 50 MG Tab.ER PO SCH (07:59)
[2019-03-22] MEDS: Multivitamin Tab PO SCH (07:59)
[2019-03-22] MEDS: Aspirin 81 MG Tab.Chew PO SCH (07:59)
[2019-03-22] MEDS: PARoxetine 20 MG Tab PO SCH (07:59)
[2019-03-22] MEDS: Ezetimibe 10 MG Tab PO SCH (08:00)
--- NOTE | 2019-03-22 09:02 | PCM.PN ---
- General Info Date of Service: 03/22/19 Subjective Update: I next feels okay,except for wheezing Functional Status: Reports: Pain Controlled, Tolerating Diet - Review of Systems Pulmonary: Reports: Shortness of Breath, Cough Cardiovascular: Reports: No Symptoms Gastrointestinal: Reports: No Symptoms - Patient Data Vitals - Most Recent: Last Vital Signs Temp 98.7 F 03/22/19 07:39 Pulse 105 H 03/22/19 07:59 Resp 26 H 03/22/19 07:39 BP 134/75 03/22/19 07:59 Pulse Ox 92 L 03/22/19 07:40 Weight - Most Recent: 87.26 kg Lab Results Last 24 Hours: Laboratory Results - last 24 hr 03/22/19 03/22/19 Range/Units 06:08 06:08 Sodium 136 (135-145) mmol/L Potassium 4.1 (3.5-5.3) mmol/L Chloride 100 (100-110) mmol/L Carbon Dioxide 28 (21-32) mmol/L BUN 48 H (7-18) mg/dL Creatinine 1.5 H (0.55-1.02) mg/dL Est Cr Clr Drug Dosing 23.92 mL/min Estimated GFR (MDRD) 33 L (>60) BUN/Creatinine Ratio 32.0 H (9-20) Glucose 106 (80-116) mg/dL Calcium 8.8 (8.6-10.2) mg/dL Total Bilirubin 0.5 (0.1-1.3) mg/dL AST 92 H D (5-25) IU/L ALT 90 H (12-36) U/L Alkaline Phosphatase 110 (56-112) IU/L NT-Pro-B Natriuret Pep 9968 H* (<=450) pg/mL Total Protein 6.2 (6.0-8.0) g/dL Albumin 1.8 L (3.2-4.6) g/dL Globulin 4.4 g/dL Albumin/Globulin Ratio 0.4 Hugo Results Last 24 Hours: Microbiology 03/17/19 18:55 Aerobic Blood Culture - Preliminary Blood - Venous - Lab Draw NO GROWTH AFTER 4 DAYS Anaerobic Blood Culture - Final Staphylococcus Aureus 03/17/19 18:50 Aerobic Blood Culture - Preliminary Blood - Venous NO GROWTH AFTER 4 DAYS Anaerobic Blood Culture - Preliminary NO GROWTH AFTER 4 DAYS Med Orders - Current: Current Medications Acetaminophen (Tylenol) 650 mg PO Q4H PRN PRN Reason: Pain (Mild 1-3)/fever Last Admin: 03/19/19 21:57 Dose: 650 mg Acetaminophen (Tylenol Extra Strength) 1,000 mg PO [facility] Last Admin: 03/21/19 17:20 Dose: 1,000 mg Artificial Tears (Refresh Liquigel 1%) 0 ml EYEBOTH BEDTIME [facility] Last Admin: 03/21/19 21:24 Dose: 1 drop Aspirin (Aspirin) 81 mg PO DAILY [facility] Last Admin: 03/22/19 07:59 Dose: 81 mg Atorvastatin Calcium (Lipitor) 60 mg PO BEDTIME [facility] Last Admin: 03/21/19 21:23 Dose: 60 mg Ceftriaxone Sodium (Rocephin) 1 gm IVPUSH Q24H [facility] Last Admin: 03/21/19 17:19 Dose: 1 gm Ezetimibe (Zetia) 10 mg PO DAILY [facility] Last Admin: 03/22/19 08:00 Dose: 10 mg Fish Oil (Fish Oil) 1 gm PO DAILY [facility] Last Admin: 03/22/19 07:59 Dose: 1 gm Furosemide (Lasix) 20 mg IVPUSH BIDDIURETIC [facility] Last Admin: 03/22/19 07:57 Dose: 20 mg Loperamide HCl (Imodium) 2 mg PO ASDIRECTED PRN PRN Reason: LOOSE STOOLS Metoprolol Succinate (Toprol Xl) 50 mg PO DAILY [facility] Last Admin: 03/22/19 07:59 Dose: 50 mg Multivitamins/Minerals/Vitamin C (Tab-A-Bobby) 1 tab PO DAILY [facility] Last Admin: 03/22/19 07:59 Dose: 1 tab Paroxetine HCl (Paxil) 40 mg PO DAILY [facility] Last Admin: 03/22/19 07:59 Dose: 40 mg Sodium Chloride (Saline Flush) 10 ml FLUSH ASDIRECTED PRN PRN Reason: Keep Vein Open Last Admin: 03/22/19 07:56 Dose: 10 ml Tramadol HCl (Ultram) 50 mg PO Q8H PRN PRN Reason: Pain Last Admin: 03/22/19 05:45 Dose: 50 mg Warfarin Sodium (Coumadin Sliding Scale) 1 each PO ASDIRECTED [facility] Discontinued Medications Furosemide (Lasix) 20 mg PO DAILY [facility] Last Admin: 03/21/19 08:19 Dose: 20 mg Furosemide (Lasix) 40 mg IVPUSH NOW ONE Stop: 03/20/19 07:33 Last Admin: 03/20/19 08:39 Dose: 40 mg Sodium Chloride (Normal Saline) 1,000 mls @ 500 mls/hr IV ASDIRECTED [facility] Last Admin: 03/17/19 16:00 Dose: 500 mls/hr Azithromycin 500 mg/ Sodium (Chloride) 250 mls @ 250 mls/hr IV Q24H [facility] Last Admin: 03/19/19 17:47 Dose: 250 mls/hr Ceftriaxone Sodium 1 gm/ (Sodium Chloride) 50 mls @ 200 mls/hr IV Q24H [facility] Last Admin: 03/17/19 18:17 Dose: 200 mls/hr Sodium Chloride (Normal Saline) 1,000 mls @ 2,000 mls/hr IV ASDIRECTED [facility] Last Infusion: 03/18/19 00:25 Dose: 125 mls/hr Sodium Chloride (Normal Saline) 1,000 mls @ 125 mls/hr IV ASDIRECTED [facility] Last Admin: 03/18/19 07:05 Dose: 125 mls/hr Influenza Virus Vaccine (Pharmacy To Dose - Influenza Vaccine) 1 each IM ONETIME ONE Stop: 03/18/19 18:19 Influenza Virus Vaccine (Fluzone Quad Syringe) 60 mcg IM .ONCE ONE Stop: 03/19/19 09:01 Last Admin: 03/19/19 09:36 Dose: Not Given Influenza Virus Vaccine (Fluzone Quad 1195-0325 Syringe) 60 mcg IM .ONCE ONE Stop: 03/21/19 09:01 Last Admin: 03/21/19 09:47 Dose: Not Given Warfarin Sodium (Coumadin) 2.5 mg PO 1600 [facility] Stop: 03/20/19 16:01 Last Admin: 03/20/19 16:44 Dose: 2.5 mg Warfarin Sodium (Coumadin) 2.5 mg PO ONETIME ONE Stop: 03/21/19 16:01 Last Admin: 03/21/19 16:21 Dose: 2.5 mg - Exam General: Alert, Oriented HEENT: Pupils Equal Lungs: Crackles, Rales Cardiovascular: Regular Rate, Irregular Rhythm - Problem List & Annotations (1) Pneumonia SNOMED Code(s): 086262009 Code(s): J18.9 - PNEUMONIA, UNSPECIFIED ORGANISM Status: Acute Current Visit: Yes Annotation/Comment:: Admit, start antibx, provide supplemental 02 (2) Knee pain SNOMED Code(s): 47756558 Code(s): M25.569 - PAIN IN UNSPECIFIED KNEE Status: Acute Current Visit: Yes Qualifiers: Chronicity: acute Laterality: left Qualified Code(s): M25.562 - Pain in left knee (3) CAD (coronary artery disease) SNOMED Code(s): 13847622 Code(s): I25.10 - ATHSCL HEART DISEASE OF [place] CORONARY ARTERY W/O ANG PCTRS Status: Chronic Current Visit: Yes Qualifiers: Coronary Disease-Associated Artery/Lesion type: bypass graft [place] vs. transplanted heart: [place] heart Associated angina: without angina Qualified Code(s): I25.810 - Atherosclerosis of coronary artery bypass graft(s) without angina pectoris (4) CHF (congestive heart failure) SNOMED Code(s): 87879288 Code(s): I50.9 - HEART FAILURE, UNSPECIFIED Status: Acute Current Visit: Yes Qualifiers: Heart failure type: systolic (5) HTN (hypertension) SNOMED Code(s): 95891032 Code(s): I10 - ESSENTIAL (PRIMARY) HYPERTENSION Status: Chronic Current Visit: Yes Qualifiers: Hypertension type: essential hypertension Qualified Code(s): I10 - Essential (primary) hypertension (6) Prerenal azotemia SNOMED Code(s): 633352528 Code(s): R79.89 - OTHER SPECIFIED ABNORMAL FINDINGS OF BLOOD CHEMISTRY Status: Acute Current Visit: Yes Annotation/Comment:: Rehydration with NS. (7) Afib SNOMED Code(s): 93590667 Code(s): I48.91 - UNSPECIFIED ATRIAL FIBRILLATION Status: Acute Current Visit: Yes Qualifiers: Atrial fibrillation type: paroxysmal Qualified Code(s): I48.0 - Paroxysmal atrial fibrillation (8) PEEWEE (obstructive sleep apnea) SNOMED Code(s): 83283632 Code(s): G47.33 - OBSTRUCTIVE SLEEP APNEA (ADULT) (PEDIATRIC) Status: Acute Current Visit: Yes (9) Valvular heart disease Status: Acute Current Visit: Yes (10) Osteoarthritis SNOMED Code(s): 883037015 Code(s): M19.90 - UNSPECIFIED OSTEOARTHRITIS, UNSPECIFIED SITE Status: Acute Current Visit: Yes (11) DEMAR (acute kidney injury) SNOMED Code(s): 01276679, 63317255 Code(s): N17.9 - ACUTE KIDNEY FAILURE, UNSPECIFIED Status: Acute Current Visit: Yes (12) Bacteremia SNOMED Code(s): 7073630 Code(s): R78.81 - BACTEREMIA Status: Acute Current Visit: Yes - Problem List Review Problem List Initiated/Reviewed/Updated: Yes - My Orders Last 24 Hours: My Active Orders 03/21/19 09:00 Furosemide [Lasix] 20 mg IVPUSH BIDDIURETIC - Plan Plan:: I spoke with infectious disease, in the light of Staphylococcus aureus growing in blood. She just suggested a transfer to [facility] for further workup including AMERICA, CT scans to determine the source and and treatment.
--- NOTE | 2019-03-22 09:52 | DISCH ---
DISCHARGE DATE: 03/22/2019 REASON FOR ADMISSION: 1. Pneumonia. 2. Knee pain. 3. Coronary artery disease. 4. CHF. 5. Hypertension. 6. Atrial fibrillation. 7. Valvular heart disease. 8. Bacteremia. BRIEF HISTORY AND HOSPITAL COURSE: This is an 84-year-old female, who was admitted for weakness and found to have pneumonia clinically and by chest x-ray. She was treated with Rocephin and azithromycin. Her blood cultures have grown Staphylococcus aureus, sensitive to methicillin. The source is unclear, and as such, transfer has been recommended by Infectious Disease for further workup including a AMERICA, CT scan to determine the course and treatment. I transferred the patient this morning. I spent more than 35 minutes in the transfer. /[id number] KATHLEEN/ASHA
== END 2019-03-22 09:41 | DRG 871 ==
LOC: FB.ED 15:41 → FB.MS 17:44
PROVIDERS: ADMIT Family Medicine; ATTEND Family Medicine
DX: A41.9 Sepsis, unspecified organism (principal); R79.89 Other specified abnormal findings of blood chemistry; R55 Syncope and collapse; J18.9 Pneumonia, unspecified organism; I48.91 Unspecified atrial fibrillation; I50.21 Acute systolic (congestive) heart failure; I25.810 Atherosclerosis of coronary artery bypass graft(s) without angina pectoris; I38 Endocarditis, valve unspecified; N17.9 Acute kidney failure, unspecified; M25.562 Pain in left knee; I11.0 Hypertensive heart disease with heart failure; B95.61 Methicillin susceptible Staphylococcus aureus infection as the cause of diseases classified elsewhere; M19.90 Unspecified osteoarthritis, unspecified site; Z96.651 Presence of right artificial knee joint; I48.0 Paroxysmal atrial fibrillation; M25.521 Pain in right elbow; G47.33 Obstructive sleep apnea (adult) (pediatric); Z79.899 Other long term (current) drug therapy; Z79.01 Long term (current) use of anticoagulants; Z79.82 Long term (current) use of aspirin; Z95.1 Presence of aortocoronary bypass graft; Z95.2 Presence of prosthetic heart valve; Z98.49 Cataract extraction status, unspecified eye
CPT/HCPCS: 36415; 70450; 71045; 71046; 73080; 80053; 83605; 83880; 84484; 85025; 85610; 86140; 93005; 96361; 99285; J7030; 73200-RT; 73700-LT; 80048; 81001; 87040; 87077; 87186; 93010; 94150; 94760; 94762; 96365; 96375; 97161-GP; 99284; A9270-GY; J0456; J0696; J1940; J7050

== ENCOUNTER 2019-07-14 09:37 | Inpatient (IN) | payer MEDICARE ==
[2019-07-14] MEDS ORDERED: Gabapentin 100 MG Cap PO PRN (16:58)
[2019-07-14] MEDS: Warfarin 2.5 MG Tab PO SCH (17:27)
[2019-07-14] MEDS: Acetaminophen 500 MG Tab PO PRN (18:21)
--- NOTE | 2019-07-14 19:21 | HP ---
ADMISSION DATE: 07/14/2019 CHIEF COMPLAINT: Foot pain, inability to walk. HISTORY OF PRESENT ILLNESS: Mrs. Dillon is an 84-year-old woman from [facility] with a history of coronary artery disease post bypass, aortic valve replacement with prosthetic valve, on warfarin; history of pleurodesis with cough; congestive heart failure; and atrial fibrillation. According to the patient, she has been having foot pain for approximately 10 days. She denies injury, but feels it is due to her repetitive dorsiflexion foot exercise that she has been doing, although she does not have on the right side. She was hospitalized up at [facility] for this for several days and was discharged from there to [facility] today because of her continued foot pain and inability to walk comfortably. She has not had fever, chills, sweats, or symptoms of infection. She denies any redness of the toe, foot, ankle or leg. PAST MEDICAL HISTORY: Quite extensive. She had coronary artery bypass graft of 3 vessels in 1984. She had chronic pleural effusion after this and had talc pleurodesis in about 1998. She had aortic valve replacement in 1999 with mechanical valve and has been on warfarin since. She has chronic atrial fibrillation, chronic congestive heart failure, chronic hearing loss. She is status post T and A, bilateral cataract surgery, cholecystectomy. She is 4, para 4, with normal deliveries and has never had jaundice, hepatitis, or blood transfusions. Past history also includes obstructive sleep apnea on CPAP, chronic eczema, hyperlipidemia, chronic kidney disease stage 3, osteoarthritis status post left total knee arthroplasty, osteoporosis, and depression. MEDICATIONS: 1. Warfarin adjusted per INR goal 2.5 to 3.5. 2. Spironolactone 50 mg daily. 3. Paroxetine 40 mg daily. 4. Multiple vitamin 1 daily. 5. Metoprolol tartrate 50 mg daily. 6. She has been on a Medrol Dosepak and is in the last 2 days of it for suspected gout. 7. Gabapentin 100 mg b.i.d. p.r.n. pain. 8. Zetia 10 mg daily. 9. Enalapril 2.5 mg tabs 1/2 tab daily. 10.Refresh Tears p.r.n. 11.Bumex 2 mg a.m., 1 mg p.m. 12.Atorvastatin 40 mg at bedtime. 13.Aspirin 81 mg daily. 14.Tylenol p.r.n. ALLERGIES: None. HABITS: Nonsmoker and nondrinker. Occasional 1 cup coffee per day. FAMILY HISTORY: The patient's father and mother both had heart disease. Diabetes in 1 sister. SOCIAL HISTORY: The patient was 2 years ago from her second . She was from her first , and he now lives at the [facility]. She had 4 children. One son at age 50 of an [place]. Three living children are in [facility], and [place]. She has 14 grandchildren and 3 great grandchildren. 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 REVIEW OF SYSTEMS: GENERAL: No seizures, syncope, or recent significant weight change. SKIN: Negative for rash. HEENT: No recent changes in hearing or vision. She wears a right-sided hearing aid. She had good results from her cataract surgery. No recent URI, sore throat. RESPIRATORY: She does have a chronic cough that she says has been present ever since her pleurodesis. CARDIAC: No chest pain or palpitations. GASTROINTESTINAL: No abdominal pain, nausea, diarrhea, constipation, hematochezia, or melena. GENITOURINARY: No hematuria or UTI symptoms. MUSCULOSKELETAL: No joint inflammation. She does have chronic swelling of the left lower extremity that preceded this episode of foot pain. PHYSICAL EXAMINATION: GENERAL: She is alert, comfortable, and appears healthy. She looks younger than her age and is in good spirits. VITAL SIGNS: Blood pressure pending. SKIN: Anicteric, warm, dry, without rash. There is no erythema or calor about the left foot. HEENT: Shows clear TM on the left. She has a hearing aid on the right that was not removed for exam. Pupils are equal and reactive. Oropharynx is clear. LUNGS: Clear to the bases. HEART: Irregular, in atrial fib, with an ejection click and a 2/6 systolic murmur over the precordium. ABDOMEN: Normal bowel sounds. Soft and nontender. No masses. No organomegaly. EXTREMITIES: Show 2+ pitting edema to the dorsum of the left foot extending 1+ up to her upper tibia. She has a healed left arthroplasty scar to the left knee. Right foot has no edema and dorsalis pedis and posterior tibial pulses are full. LABORATORY: Pending. ASSESSMENT: An 84-year-old woman with: 1. Loss of ambulation due to foot pain and swelling, cause unclear, possibly gout. 2. Arteriosclerotic heart disease with history of coronary artery bypass graft, aortic valve replacement with mechanical valve on anticoagulation. 3. Chronic atrial fibrillation with congestive heart failure. 4. Chronic cough with history of recurrent pleural effusions post bypass and pleurodesis in 1998. 5. Chronic hearing loss. 6. Hyperlipidemia. PLAN: She is admitted to swing bed. We will provide analgesics as necessary for foot pain and have a physical therapy and occupational therapy evaluation done for return of ambulation. I anticipate a short swing bed stay followed by return to her home at [facility] when adequately recuperated. We will provide palliative care measures for underlying medical problems while she is here. /[id number] SHANIA/ASHA
[2019-07-14] MEDS ORDERED: Carboxymethylcellulose Sodium 0.5% Ophth Soln 15 ML Bottle ONE (20:03)
[2019-07-14] MEDS: Gabapentin 100 MG Cap PO SCH (20:04)
[2019-07-14] MEDS: Carboxymethylcellulose Sodium 1% Ophth Gel 15 ML Bottle EYEBOTH SCH (20:05)
[2019-07-15] MEDS: Colchicine 0.6 MG Tab PO SCH (08:31)
[2019-07-15] MEDS: Bumetanide 2 MG Tab PO SCH (08:31)
[2019-07-15] MEDS: Aspirin 81 MG Tab.Chew PO SCH (08:31)
[2019-07-15] MEDS: Spironolactone 50 MG Tab PO SCH (08:31)
[2019-07-15] MEDS: Metoprolol Tartrate 50 MG Tab PO SCH (08:31)
[2019-07-15] MEDS: Gabapentin 100 MG Cap PO SCH ×2 (08:32→20:53)
[2019-07-15] MEDS: PARoxetine 20 MG Tab PO SCH (08:33)
[2019-07-15] MEDS: Ezetimibe 10 MG Tab PO SCH (08:33)
[2019-07-15] MEDS: Allopurinol 300 MG Tab PO SCH (08:33)
[2019-07-15] MEDS: Bumetanide 1 MG Tab PO SCH (13:37)
[2019-07-15] MEDS ORDERED: Warfarin 2.5 MG Tab PO SCH (16:00)
[2019-07-15] MEDS ORDERED: Warfarin Sliding Scale PO SCH (16:00)
[2019-07-15] MEDS: Trolamine Salicylate/Aloe Vera 10% Crm 85 GM Tube TOP PRN (16:09)
[2019-07-15] MEDS: Acetaminophen 500 MG Tab PO PRN (19:36)
[2019-07-15] MEDS: Carboxymethylcellulose Sodium 1% Ophth Gel 15 ML Bottle EYEBOTH SCH (20:53)
[2019-07-16] MEDS: Acetaminophen 500 MG Tab PO PRN ×3 (03:24→20:14)
[2019-07-16] MEDS: Bumetanide 2 MG Tab PO SCH (08:15)
[2019-07-16] MEDS: Aspirin 81 MG Tab.Chew PO SCH (08:52)
[2019-07-16] MEDS: Metoprolol Tartrate 50 MG Tab PO SCH (08:52)
[2019-07-16] MEDS: Colchicine 0.6 MG Tab PO SCH (08:52)
[2019-07-16] MEDS: PARoxetine 20 MG Tab PO SCH (08:54)
[2019-07-16] MEDS: Gabapentin 100 MG Cap PO SCH ×2 (08:54→20:10)
[2019-07-16] MEDS: Allopurinol 300 MG Tab PO SCH (08:55)
[2019-07-16] MEDS: Ezetimibe 10 MG Tab PO SCH (08:55)
[2019-07-16] MEDS: Spironolactone 50 MG Tab PO SCH (08:56)
[2019-07-16] MEDS: Trolamine Salicylate/Aloe Vera 10% Crm 85 GM Tube TOP PRN ×2 (10:04→20:11)
[2019-07-16] MEDS: Bumetanide 1 MG Tab PO SCH (14:00)
[2019-07-16] MEDS: traMADol 50 MG Tab PO PRN ×2 (14:38→20:54)
[2019-07-16] MEDS: Warfarin 2.5 MG Tab PO SCH (15:33)
[2019-07-16] MEDS: Carboxymethylcellulose Sodium 1% Ophth Gel 15 ML Bottle EYEBOTH SCH (20:11)
[2019-07-17] MEDS: Bumetanide 2 MG Tab PO SCH (08:11)
[2019-07-17] MEDS: traMADol 50 MG Tab PO PRN ×3 (08:16→21:36)
[2019-07-17] MEDS: Gabapentin 100 MG Cap PO SCH ×2 (08:18→20:07)
[2019-07-17] MEDS: PARoxetine 20 MG Tab PO SCH (08:28)
[2019-07-17] MEDS: Spironolactone 50 MG Tab PO SCH (08:28)
[2019-07-17] MEDS: Allopurinol 300 MG Tab PO SCH (08:28)
[2019-07-17] MEDS: Aspirin 81 MG Tab.Chew PO SCH (08:28)
[2019-07-17] MEDS: Ezetimibe 10 MG Tab PO SCH (08:29)
[2019-07-17] MEDS: Colchicine 0.6 MG Tab PO SCH (08:29)
[2019-07-17] MEDS: Metoprolol Tartrate 50 MG Tab PO SCH (08:29)
[2019-07-17] MEDS: Bumetanide 1 MG Tab PO SCH (13:19)
[2019-07-17] MEDS: Warfarin 2.5 MG Tab PO SCH (15:26)
[2019-07-17] MEDS: Acetaminophen 500 MG Tab PO PRN (19:41)
[2019-07-17] MEDS: Trolamine Salicylate/Aloe Vera 10% Crm 85 GM Tube TOP PRN (19:41)
[2019-07-17] MEDS: Carboxymethylcellulose Sodium 1% Ophth Gel 15 ML Bottle EYEBOTH SCH (20:07)
[2019-07-18] MEDS: Acetaminophen 500 MG Tab PO PRN ×2 (06:47→20:24)
[2019-07-18] MEDS: Bumetanide 2 MG Tab PO SCH (08:44)
[2019-07-18] MEDS: Metoprolol Tartrate 50 MG Tab PO SCH (08:44)
[2019-07-18] MEDS: Spironolactone 50 MG Tab PO SCH (08:44)
[2019-07-18] MEDS: Aspirin 81 MG Tab.Chew PO SCH (08:44)
[2019-07-18] MEDS: Colchicine 0.6 MG Tab PO SCH ×2 (08:44→20:21)
[2019-07-18] MEDS: Ezetimibe 10 MG Tab PO SCH (08:45)
[2019-07-18] MEDS: Allopurinol 300 MG Tab PO SCH (08:45)
[2019-07-18] MEDS: PARoxetine 20 MG Tab PO SCH (08:45)
[2019-07-18] MEDS: Gabapentin 100 MG Cap PO SCH (08:47)
[2019-07-18] MEDS: Acetaminophen/Codeine 300-30 MG Tab PO PRN (12:38)
[2019-07-18] MEDS: predniSONE 10 MG Tab PO SCH ×2 (12:38→20:21)
[2019-07-18] MEDS: Bumetanide 1 MG Tab PO SCH (14:29)
[2019-07-18] MEDS ORDERED: Warfarin 5 MG Tab PO ONE (16:00)
[2019-07-18] MEDS: Carboxymethylcellulose Sodium 1% Ophth Gel 15 ML Bottle EYEBOTH SCH (20:21)
[2019-07-18] MEDS: Gabapentin 300 MG Cap PO SCH (20:21)
[2019-07-19] MEDS: predniSONE 10 MG Tab PO SCH ×2 (10:27→20:27)
[2019-07-19] MEDS: Bumetanide 2 MG Tab PO SCH (10:30)
[2019-07-19] MEDS: Metoprolol Tartrate 50 MG Tab PO SCH (10:31)
[2019-07-19] MEDS: Aspirin 81 MG Tab.Chew PO SCH (10:31)
[2019-07-19] MEDS: Colchicine 0.6 MG Tab PO SCH ×2 (10:31→20:26)
[2019-07-19] MEDS: Spironolactone 50 MG Tab PO SCH (10:31)
[2019-07-19] MEDS: Gabapentin 300 MG Cap PO SCH ×2 (10:32→20:26)
[2019-07-19] MEDS: PARoxetine 20 MG Tab PO SCH (10:32)
[2019-07-19] MEDS: Allopurinol 300 MG Tab PO SCH (10:34)
[2019-07-19] MEDS: Acetaminophen/Codeine 300-30 MG Tab PO PRN ×2 (10:34→23:44)
[2019-07-19] MEDS: Ezetimibe 10 MG Tab PO SCH (10:34)
[2019-07-19] MEDS: Warfarin 2.5 MG Tab PO SCH (15:31)
[2019-07-19] MEDS: Bumetanide 1 MG Tab PO SCH (15:32)
[2019-07-19] MEDS: Carboxymethylcellulose Sodium 1% Ophth Gel 15 ML Bottle EYEBOTH SCH (20:27)
[2019-07-20] MEDS: Spironolactone 50 MG Tab PO SCH (08:15)
[2019-07-20] MEDS: Metoprolol Tartrate 50 MG Tab PO SCH (08:15)
[2019-07-20] MEDS: Bumetanide 2 MG Tab PO SCH (08:15)
[2019-07-20] MEDS: Aspirin 81 MG Tab.Chew PO SCH (08:15)
[2019-07-20] MEDS: PARoxetine 20 MG Tab PO SCH (08:16)
[2019-07-20] MEDS: Ezetimibe 10 MG Tab PO SCH (08:16)
[2019-07-20] MEDS: predniSONE 10 MG Tab PO SCH ×2 (08:16→21:01)
[2019-07-20] MEDS: Allopurinol 300 MG Tab PO SCH (08:17)
[2019-07-20] MEDS: Acetaminophen/Codeine 300-30 MG Tab PO PRN ×3 (08:20→21:03)
[2019-07-20] MEDS: Gabapentin 300 MG Cap PO SCH ×2 (08:20→21:01)
[2019-07-20] MEDS: Bumetanide 1 MG Tab PO SCH (15:41)
[2019-07-20] MEDS: Warfarin 2.5 MG Tab PO SCH (15:42)
[2019-07-20] MEDS ORDERED: atorvaSTATin 40 MG Tab PO SCH (21:00)
[2019-07-20] MEDS: Carboxymethylcellulose Sodium 1% Ophth Gel 15 ML Bottle EYEBOTH SCH (21:01)
[2019-07-21] MEDS: Acetaminophen/Codeine 300-30 MG Tab PO PRN ×3 (08:42→17:31)
[2019-07-21] MEDS: Bumetanide 2 MG Tab PO SCH (08:42)
[2019-07-21] MEDS: Gabapentin 300 MG Cap PO SCH ×2 (08:43→20:19)
[2019-07-21] MEDS: Spironolactone 50 MG Tab PO SCH (08:43)
[2019-07-21] MEDS: Aspirin 81 MG Tab.Chew PO SCH (08:43)
[2019-07-21] MEDS: Metoprolol Tartrate 50 MG Tab PO SCH (08:44)
[2019-07-21] MEDS: PARoxetine 20 MG Tab PO SCH (08:45)
[2019-07-21] MEDS: predniSONE 10 MG Tab PO SCH ×2 (08:46→20:18)
[2019-07-21] MEDS: Ezetimibe 10 MG Tab PO SCH (08:46)
[2019-07-21] MEDS: Trolamine Salicylate/Aloe Vera 10% Crm 85 GM Tube TOP PRN (08:49)
[2019-07-21] MEDS: Allopurinol 300 MG Tab PO SCH (09:30)
[2019-07-21] MEDS: Bumetanide 1 MG Tab PO SCH (13:31)
[2019-07-21] MEDS ORDERED: Warfarin 2.5 MG Tab PO SCH (16:00)
[2019-07-21] MEDS: Carboxymethylcellulose Sodium 1% Ophth Gel 15 ML Bottle EYEBOTH SCH (20:18)
[2019-07-22] MEDS: Acetaminophen 500 MG Tab PO PRN (01:28)
[2019-07-22] MEDS: Acetaminophen/Codeine 300-30 MG Tab PO PRN (08:40)
[2019-07-22] MEDS: Bumetanide 2 MG Tab PO SCH (08:41)
[2019-07-22] MEDS: Metoprolol Tartrate 50 MG Tab PO SCH (08:42)
[2019-07-22] MEDS: Aspirin 81 MG Tab.Chew PO SCH (08:42)
[2019-07-22] MEDS: Spironolactone 50 MG Tab PO SCH (08:42)
[2019-07-22] MEDS: PARoxetine 20 MG Tab PO SCH (08:43)
[2019-07-22] MEDS: Allopurinol 300 MG Tab PO SCH (08:44)
[2019-07-22] MEDS: Ezetimibe 10 MG Tab PO SCH (08:44)
[2019-07-22] MEDS: Gabapentin 300 MG Cap PO SCH (08:47)
[2019-07-22] MEDS: Bumetanide 1 MG Tab PO SCH (14:51)
--- NOTE | 2019-07-22 15:00 | DISCH ---
DISCHARGE DATE: 07/22/2019 HOSPITAL COURSE: Shira Dillon is an 84-year-old, female, history of coronary artery disease, aortic valve replacement, Coumadin therapy for prosthetic valve, history of heart failure and atrial fibrillation. Presented with complicated severe foot pain. Pain over the dorsum of the foot. Had been hospitalized at [facility] for several days and discharged to swing bed at [facility] because of continued foot pain. Please see Dr. Villeda's admitting examination. LABORATORY STUDIES: 07/15/2019, hemoglobin 9.5, hematocrit 30.2, white count 10,900. INR 2.21, 1.72, 2.93. Electrolytes reveal BUN 54, creatinine 1.4, GFR 36. Uric acid markedly elevated at 8.8. Calcium 10.4. Mildly elevated liver enzymes. During the hospital stay, pain was controlled, medications were adjusted. We had the addition of allopurinol 150 mg daily. Medications improved, symptoms improved, pain improved. Ambulation skills were complementary. PHYSICAL EXAMINATION ON DISCHARGE: VITAL SIGNS: 36.4, 73, 130/70,90,20, and 96. GENERAL: Appears comfortable. Speech was fluent. NECK: Benign. Thyroid small. CHEST: On auscultation, clear all lung monryo. HEART: Soft murmur. Irregularly irregular heart beat. ABDOMEN: Benign. EXTREMITIES: Feet revealed decreased pulses but present. Good sensation. No obvious deformity. Complicated foot pain, gouty. PLAN: Much better. DISPOSITION: Discharged home. MEDICATIONS: Reviewed, same medications at home. Coumadin will be adjusted accordingly. INR on 07/25/2019. Addition of allopurinol, Tylenol No. 3, and gabapentin for pain. FOLLOWUP: We will follow up with primary care doctor in 1 week's duration. SURGICAL PROCEDURES: None. CONSULTATION: None. ADDENDUM: 30-minute discharge planning and treatment. /[id number] /ASHA
[2019-07-22] MEDS ORDERED: Warfarin 2.5 MG Tab PO SCH (16:00)
== END 2019-07-22 14:55 | disposition home or self-care (01) | DRG 556 ==
LOC: FB.MS 15:09
PROVIDERS: ADMIT Family Medicine; ATTEND Family Medicine
DX: M79.672 Pain in left foot (principal); I48.20 Chronic atrial fibrillation, unspecified; R26.2 Difficulty in walking, not elsewhere classified; I25.10 Atherosclerotic heart disease of native coronary artery without angina pectoris; I50.9 Heart failure, unspecified; E78.5 Hyperlipidemia, unspecified; G47.33 Obstructive sleep apnea (adult) (pediatric); N18.3 Chronic kidney disease, stage 3 (moderate); M17.12 Unilateral primary osteoarthritis, left knee; M81.0 Age-related osteoporosis without current pathological fracture; F32.9 Major depressive disorder, single episode, unspecified; Z95.1 Presence of aortocoronary bypass graft; Z79.01 Long term (current) use of anticoagulants; Z95.2 Presence of prosthetic heart valve; Z79.82 Long term (current) use of aspirin; Z79.899 Other long term (current) drug therapy; Z90.49 Acquired absence of other specified parts of digestive tract; Z98.41 Cataract extraction status, right eye; Z98.42 Cataract extraction status, left eye; Z96.652 Presence of left artificial knee joint
CPT/HCPCS: 36415; 80053; 84550; 85025; 85610; 97112-GP; 97116-GP; 97161-GP; 97165-GO; 97530-GO; 97535-GO; A9270-GY

== ENCOUNTER 2019-10-17 14:07 | Inpatient (IN) | payer MEDICARE ==
--- NOTE | 2019-10-17 14:19 | EDM.PDOC ---
ED HPI GENERAL MEDICAL PROBLEM - General Stated Complaint: DIZZY Time Seen by Provider: 10/17/19 14:19 Source of Information: Reports: Patient History Limitations: Reports: No Limitations - History of Present Illness INITIAL COMMENTS - FREE TEXT/NARRATIVE: 84-year-old female who presents from [facility] with three-day history of diarrhea and progressive weakness over time. She reports she has had no diarrhea today but she has felt weak and dizzy not had much of an appetite. Apparently her blood pressure was taken and was 58 systolic and her pulse rate was in the 110 range. She has had no nausea or vomiting. She has had no dysuria or hematuria. She denies any pain other than her "normal pains" which are diffuse joint aches which she reports are no different than previous. She not quantitate or qualitate these any more. She has no abdominal pain or cramping. She has no chest pain. She has had no cough or difficulty breathing. She does report that she has been taking her medications as directed. Her blood pressure on arrival here was 138 systolic and a pulse rate of 98. Later on her blood pressure did dip into the 80-90 systolic range. She does reports that she is thirsty and she feels that her mouth is very dry. She has also been following with Dr. Garcia in regard to a left knee infection which has a draining sinus. She is currently on Bactrim DS to be treating this and is supposed to be following up with her orthopedic surgeon next week. There are no other associated signs or symptoms. There are no other modifying factors. Onset: Other (Last 3-4 days.) Duration: Getting Worse Location: Reports: Generalized Quality: Reports: Ache Severity: Mild ("Her usual') Improves with: Reports: Rest Worsens with: Reports: Other (Standing), Movement Context: Reports: Other (As above) Associated Symptoms: Reports: Loss of Appetite, Weakness, Other (As above) Treatments [employer]: Reports: Other (see below) (Nothing) - Related Data Allergies Allergy/AdvReac Type Severity Reaction Status Date / Time No Known Allergies Allergy Verified 10/17/19 14:39 Home Meds: Home Meds Acetaminophen [Acetaminophen Extra Strength] 500 mg PO Q6H PRN 03/18/19 [History ] Aspirin 81 mg PO DAILY 03/18/19 [History] Enalapril [Vasotec] 1.25 mg PO DAILY 10/04/19 [History] Ezetimibe [Zetia] 10 mg PO BEDTIME 03/18/19 [History] PARoxetine HCl [Paxil] 40 mg PO DAILY 03/18/19 [History] Bumetanide [Bumex] 1 mg PO BID 07/14/19 [History] Metoprolol Tartrate 50 mg PO DAILY 07/14/19 [History] Spironolactone 50 mg PO DAILY 07/14/19 [History] atorvaSTATin [Lipitor] 40 mg PO BEDTIME 07/14/19 [History] Gabapentin [Neurontin] 100 mg PO BID 10/17/19 [History] Polyvinyl Alcohol [Akwa Tears] 1 drop EYEBOTH BEDTIME 10/17/19 [History] Sulfamethoxazole/Trimethoprim [Septra DS] 1 tab PO BID 10/17/19 [History] Warfarin [Coumadin] 2.5 mg PO DAILY@199910/17/19 [History] allopurinoL [Zyloprim] 300 mg PO DAILY 10/17/19 [History] Past Medical History HEENT History: Reports: Cataract Cardiovascular History: Reports: Afib, Bypass, CAD, Heart Failure, Heart Valve Replacement Respiratory History: Reports: Sleep Apnea Genitourinary History: Reports: Urinary Incontinence Musculoskeletal History: Reports: Arthritis Hematologic History: Reports: Anticoagulation Therapy (Chronically anticoagulated with Coumadin) Dermatologic History: Reports: Other (See Below) Other Dermatologic History: Yellow nail syndrome. - Infectious Disease History Infectious Disease History: Reports: Chicken Pox, MRSA, Mumps, Other (See Below) Other Infectious Disease History: History MRSA, ingrown hair, buttock area, hospitalized. Patient states she had measles, unsure if Rubella or Rubeola. - Past Surgical History HEENT Surgical History: Reports: Cataract Surgery, Tonsillectomy Cardiovascular Surgical History: Reports: Coronary Artery Bypass, Other (See Below) (Bilateral chest tubes with Cottrell Acis following this) Musculoskeletal Surgical History: Reports: Knee Replacement (Left), Shoulder Surgery (Bilateral rotator cuff surgery) Social & Family History - Tobacco Use Smoking Status *Q: Unknown Ever Smoked (Nonsmoker) - Caffeine Use Caffeine Use: Reports: Coffee, Soda Other Caffeine Use: Drinks one cup of decaf coffee everyday, and rarely drinks soda. Caffeine Use Comment: de-caf coffee - Alcohol Use Alcohol Use History: No - Living Situation & Occupation Living situation: Reports: Other (She lives at [facility] since this previous fall.) Occupation: Retired Social History Comment: She is here with her daughter ED ROS GENERAL - Review of Systems Review Of Systems: See Below Constitutional: Reports: Malaise, Weakness, Fatigue, Decreased Appetite HEENT: Reports: No Symptoms Respiratory: Reports: No Symptoms Cardiovascular: Reports: No Symptoms Endocrine: Reports: No Symptoms GI/Abdominal: Reports: Diarrhea. 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 She appears nontoxic.) Eye Exam: Bilateral Eye: EOMI, Normal Inspection, PERRL Ears: Normal External Exam, Hearing Loss (Chronic) Nose: Normal Inspection, Normal Mucosa, No Blood Throat/Mouth: Normal Voice, No Airway Compromise, Other (Dry mucous membranes) Head Exam: Atraumatic, Normocephalic Neck: Normal Inspection, Supple, Non-Tender, Full Range of Motion Respiratory/Chest: No Respiratory Distress, Lungs Clear, Normal Breath Sounds, No Accessory Muscle Use, Chest Non-Tender Cardiovascular: Normal Peripheral Pulses, No JVD, Irregularly Irregular, Other ( Regular rate) Neurological: Alert, Normal Mood/Affect, Normal Dorsiflexion, Normal Plantar Flexion, No Motor/Sensory Deficits, Oriented x 3 Back Exam: Normal Inspection Extremities: Normal Range of Motion, Normal Capillary Refill, Other (Some swelling and tenderness to palpation over the medial proximal left lower leg and knee area. There is some erythema) Skin Exam: Warm, Dry, No Rash, Erythema, Wound/Incision (Draining sinus on left knee area.) EKG INTERPRETATION EKG Date: 10/17/19 Time: 15:00 Rhythm: A-Fib Rate (Beats/Min): 102 [place]: Normal P-Wave: Absent QRS: RBBB ST-T: Normal QT: Prolonged (QTc) Comparison: No Change (No change from EKG performed on 12/11/2013.) Course - Vital Signs Last Recorded V/S: Last Vital Signs Temp 36.4 C 10/17/19 16:44 Pulse 73 10/17/19 16:44 Resp 18 10/17/19 16:44 BP 77/45 L 10/17/19 17:16 Pulse Ox 93 L 10/17/19 16:50 - Orders/Labs/Meds Orders: Active Orders 24 hr Category Date Time Status Admission Status [Patient Status] [ADT] Routine ADT 10/17/19 15:46 Active Height and Weight [RC] 06 Care 10/17/19 15:52 Active Intake and Output [RC] 06,14,22 Care 10/17/19 15:53 Active Oxygen Therapy [RC] PRN Care 10/17/19 15:52 Active Vital Signs [RC] QSHIFT Care 10/17/19 15:52 Active 2 Gram Sodium Diet [DIET] Diet 10/17/19 Dinner Ordered BASIC METABOLIC PANEL,BMP [CHEM] AM Lab 10/18/19 05:11 Ordered CBC WITH AUTO DIFF [HEME] AM Lab 10/18/19 05:11 Ordered INR,PT,PROTHROMBIN TIME [COAG] AM Lab 10/18/19 05:11 Ordered Acetaminophen [Tylenol] Med 10/17/19 15:52 Active 650 mg PO Q4H PRN Ondansetron [Zofran ODT] Med 10/17/19 15:52 Active 4 mg PO Q6H PRN Ondansetron [Zofran] Med 10/17/19 15:52 Active 4 mg IVPUSH Q6H PRN Sodium Chloride 0.9% [Normal Saline] 1,000 ml Med 10/17/19 16:00 Active IV ASDIRECTED Sodium Chloride 0.9% [Saline Flush] Med 10/17/19 14:47 Active 10 ml FLUSH ASDIRECTED PRN Peripheral IV Insertion Adult [OM.PC] Routine Oth 10/17/19 14:47 Ordered Resuscitation Status Routine Resus Stat 10/17/19 15:52 Ordered EKG 12 Lead [EK] Routine Ther 10/17/19 14:47 Ordered Medication Orders Acetaminophen (Tylenol) 650 mg PO Q4H PRN PRN Reason: Pain (Mild 1-3)/fever Sodium Chloride (Normal Saline) 1,000 mls @ 75 mls/hr IV ASDIRECTED FLAKITA Last Admin: 10/17/19 16:42 Dose: 75 mls/hr Ondansetron HCl (Zofran Odt) 4 mg PO Q6H PRN PRN Reason: nausea, able to take PO Ondansetron HCl (Zofran) 4 mg IVPUSH Q6H PRN PRN Reason: Nausea/Vomiting Sodium Chloride (Saline Flush) 10 ml FLUSH ASDIRECTED PRN PRN Reason: Keep Vein Open Last Admin: 10/17/19 15:20 Dose: 10 ml Labs: Laboratory Tests 10/17/19 10/17/19 10/17/19 Range/Units 14:47 15:10 15:10 WBC 11.7 (4.5-12.0) X10-3/uL RBC 3.14 L (3.23-5.20) x10(6)uL Hgb 9.0 L (11.5-15.5) g/dL Hct 27.6 L (30.0-51.3) % MCV 88.1 (80-96) fL MCH 28.8 (27.7-33.6) pg MCHC 32.7 (32.2-35.4) g/dL RDW 20.2 H (11.5-15.5) % Plt Count 269 (125-369) X10(3)uL MPV 8.4 (7.4-10.4) fL Neut % (Auto) 81.0 (46-82) % Lymph % (Auto) 9.7 L (13-37) % [place] % (Auto) 6.3 (4-12) % Eos % (Auto) 1 (1.0-5.0) % Baso % (Auto) 2 (0-2) % Neut # (Auto) 9.6 H (1.6-8.3) # Lymph # (Auto) 1.1 (0.6-5.0) # [place] # (Auto) 0.7 (0.0-1.3) # Eos # (Auto) 0.1 (0.0-0.8) # Baso # (Auto) 0.2 (0.0-0.2) # PT (9.0-11.1) sec INR (1.00-1.24) Sodium 131 L (135-145) mmol/L Potassium 5.1 (3.5-5.3) mmol/L Chloride 96 L (100-110) mmol/L Carbon Dioxide 21 (21-32) mmol/L BUN 95 H D (7-18) mg/dL Creatinine 6.7 H* (0.55-1.02) mg/dL Est Cr Clr Drug Dosing 5.12 mL/min Estimated GFR (MDRD) 6 L (>60) BUN/Creatinine Ratio 14.2 (9-20) Glucose 99 (80-116) mg/dL Calcium 9.3 (8.6-10.2) mg/dL Magnesium (1.8-2.5) mg/dL Total Bilirubin 0.2 (0.1-1.3) mg/dL AST 28 H D (5-25) IU/L ALT 14 D (12-36) U/L Alkaline Phosphatase 87 (56-112) IU/L C-Reactive Protein (0.5-0.9) mg/dL Total Protein 7.5 (6.0-8.0) g/dL Albumin 2.6 L (3.2-4.6) g/dL Globulin 4.9 g/dL Albumin/Globulin Ratio 0.5 Urine Color Yellow (YELLOW) Urine Appearance Clear (CLEAR) Urine pH 5.0 (5.0-6.5) Ur Specific [place] 1.025 (1.010-1.025) Urine Protein Negative (NEGATIVE) mg/dL Urine Glucose (UA) Normal (NORMAL) mg/dL Urine Ketones Negative (NEGATIVE) mg/dL Urine Occult Blood Moderate H (NEGATIVE) Urine Nitrite Negative (NEGATIVE) Urine Bilirubin Small H (NEGATIVE) Urine Urobilinogen Normal (NEGATIVE) mg/dL Ur Leukocyte Esterase Negative (NEGATIVE) Urine RBC 0-5 (0-5) Urine WBC 0-5 (0-5) Ur Squamous Epith Cells Rare (NS,R,O) Amorphous Sediment Few Urine Bacteria Rare H (NS) 10/17/19 10/17/19 10/17/19 Range/Units 15:10 15:10 15:10 WBC (4.5-12.0) X10-3/uL RBC (3.23-5.20) x10(6)uL Hgb (11.5-15.5) g/dL Hct (30.0-51.3) % MCV (80-96) fL MCH (27.7-33.6) pg MCHC (32.2-35.4) g/dL RDW (11.5-15.5) % Plt Count (125-369) X10(3)uL MPV (7.4-10.4) fL Neut % (Auto) (46-82) % Lymph % (Auto) (13-37) % [place] % (Auto) (4-12) % Eos % (Auto) (1.0-5.0) % Baso % (Auto) (0-2) % Neut # (Auto) (1.6-8.3) # Lymph # (Auto) (0.6-5.0) # [place] # (Auto) (0.0-1.3) # Eos # (Auto) (0.0-0.8) # Baso # (Auto) (0.0-0.2) # PT 51.4 H* (9.0-11.1) sec INR 5.31 H* (1.00-1.24) Sodium (135-145) mmol/L Potassium (3.5-5.3) mmol/L Chloride (100-110) mmol/L Carbon Dioxide (21-32) mmol/L BUN (7-18) mg/dL Creatinine (0.55-1.02) mg/dL Est Cr Clr Drug Dosing mL/min Estimated GFR (MDRD) (>60) BUN/Creatinine Ratio (9-20) Glucose (80-116) mg/dL Calcium (8.6-10.2) mg/dL Magnesium 2.4 (1.8-2.5) mg/dL Total Bilirubin (0.1-1.3) mg/dL AST (5-25) IU/L ALT (12-36) U/L Alkaline Phosphatase (56-112) IU/L C-Reactive Protein 20.2 H* (0.5-0.9) mg/dL Total Protein (6.0-8.0) g/dL Albumin (3.2-4.6) g/dL Globulin g/dL Albumin/Globulin Ratio Urine Color (YELLOW) Urine Appearance (CLEAR) Urine pH (5.0-6.5) Ur Specific [place] (1.010-1.025) Urine Protein (NEGATIVE) mg/dL Urine Glucose (UA) (NORMAL) mg/dL Urine Ketones (NEGATIVE) mg/dL Urine Occult Blood (NEGATIVE) Urine Nitrite (NEGATIVE) Urine Bilirubin (NEGATIVE) Urine Urobilinogen (NEGATIVE) mg/dL Ur Leukocyte Esterase (NEGATIVE) Urine RBC (0-5) Urine WBC (0-5) Ur Squamous Epith Cells (NS,R,O) Amorphous Sediment Urine Bacteria (NS) Meds: Medications Generic Name Dose Route Start Last Admin Trade Name Freq PRN Reason Stop Dose Admin Acetaminophen 650 mg 10/17/19 15:52 Tylenol PO Q4H PRN Pain (Mild 1-3)/fever Sodium Chloride 1,000 mls @ 75 mls/hr 10/17/19 16:00 10/17/19 16:42 Normal Saline IV 75 mls/hr ASDIRECTED FLAKITA Administration Ondansetron HCl 4 mg 10/17/19 15:52 Zofran Odt PO Q6H PRN nausea, able to take PO Ondansetron HCl 4 mg 10/17/19 15:52 Zofran IVPUSH Q6H PRN Nausea/Vomiting Sodium Chloride 10 ml 10/17/19 14:47 10/17/19 15:20 Saline Flush FLUSH 10 ml ASDIRECTED PRN Administration Keep Vein Open Discontinued Medications Generic Name Dose Route Start Last Admin Trade Name Freq PRN Reason Stop Dose Admin Sodium Chloride 500 mls @ 999 mls/hr 10/17/19 14:51 10/17/19 15:20 Normal Saline IV 10/17/19 15:21 999 mls/hr .BOLUS ONE Administration - Re-Assessments/Exams Free Text/Narrative Re-Assessment/Exam: 10/17/19 15:40: The patient's creatinine is 6.7. Her INR required diluting. Her blood pressure has routinely been in the 80 systolic range. I am giving the patient normal saline 500 mL bolus but she has acute renal failure probably associated with it and dehydration and she will also be supratherapeutic on her INR. She will need admission for IV fluid hydration and fluid resuscitation. I discussed this with the patient and with her family and the patient was initially not wanting to be admitted but after discussing it with her and with her daughter in the room she has agreed to admission. She will need a greater then 2 midnight hospital stay to accomplish the plan of care for correction of her dehydration and acute kidney injury and the patient has reiterated and the daughter has reiterated that she is a DNR/DNI really wants no aggressive cares but supportive cares. I will call and discussed patient's case with Dr. Shelton. 10/17/19 15:50: I discussed the patient's case with Dr. Shelton and he has agreed to admit the patient. I will place interim admission orders and he will be seeing the patient. Departure - Departure Time of Disposition: 16:25 Disposition: Admitted As Inpatient 68 Condition: Fair Clinical Impression: Severe dehydration, Supratherapeutic INR, Chronic infection of left knee Acute renal failure Qualifiers: Acute renal failure type: unspecified Qualified Code(s): N17.9 - Acute kidney failure, unspecified Hypotension Qualifiers: Hypotension type: hypotension due to hypovolemia Qualified Code(s): I95.89 - Other hypotension; E86.1 - Hypovolemia - Discharge Information Sepsis Event Note - Focused Exam Vital Signs: Vital Signs Temp Pulse Resp BP Pulse Ox 10/17/19 14:10 36.7 C 98 18 138/72 94 L Date Exam was Performed: 10/17/19 Time Exam was Performed: 18:36 - My Orders Last 24 Hours: My Active Orders 10/17/19 14:47 Sodium Chloride 0.9% [Saline Flush] 10 ml FLUSH ASDIRECTED PRN Peripheral IV Insertion Adult [OM.PC] Routine EKG 12 Lead [EK] Routine 10/17/19 15:46 Admission Status [Patient Status] [ADT] Routine 10/17/19 15:52 Height and Weight [RC] 06 Oxygen Therapy [RC] PRN Vital Signs [RC] QSHIFT Acetaminophen [Tylenol] 650 mg PO Q4H PRN Ondansetron [Zofran ODT] 4 mg PO Q6H PRN Ondansetron [Zofran] 4 mg IVPUSH Q6H PRN Resuscitation Status Routine 10/17/19 15:53 Intake and Output [RC] 06,14,22 10/17/19 16:00 Sodium Chloride 0.9% [Normal Saline] 1,000 ml IV ASDIRECTED 10/17/19 Dinner 2 Gram Sodium Diet [DIET] 10/18/19 05:11 BASIC METABOLIC PANEL,BMP [CHEM] AM CBC WITH AUTO DIFF [HEME] AM INR,PT,PROTHROMBIN TIME [COAG] AM - Assessment/Plan Last 24 Hours: My Active Orders 10/17/19 14:47 Sodium Chloride 0.9% [Saline Flush] 10 ml FLUSH ASDIRECTED PRN Peripheral IV Insertion Adult [OM.PC] Routine EKG 12 Lead [EK] Routine 10/17/19 15:46 Admission Status [Patient Status] [ADT] Routine 10/17/19 15:52 Height and Weight [RC] 06 Oxygen Therapy [RC] PRN Vital Signs [RC] QSHIFT Acetaminophen [Tylenol] 650 mg PO Q4H PRN Ondansetron [Zofran ODT] 4 mg PO Q6H PRN Ondansetron [Zofran] 4 mg IVPUSH Q6H PRN Resuscitation Status Routine 10/17/19 15:53 Intake and Output [RC] 06,14,22 10/17/19 16:00 Sodium Chloride 0.9% [Normal Saline] 1,000 ml IV ASDIRECTED 10/17/19 Dinner 2 Gram Sodium Diet [DIET] 10/18/19 05:11 BASIC METABOLIC PANEL,BMP [CHEM] AM CBC WITH AUTO DIFF [HEME] AM INR,PT,PROTHROMBIN TIME [COAG] AM
[2019-10-17] MEDS ORDERED: Sodium Chloride 0.9% 500 ML IV ONE (14:51)
[2019-10-17] MEDS: Sodium Chloride 0.9% 10 ML Syringe FLUSH PRN (15:20)
[2019-10-17] MEDS ORDERED: Ondansetron 4 MG/2 ML SDV IVPUSH PRN (15:52)
[2019-10-17] MEDS ORDERED: Ondansetron 4 MG Tab.DIS PO PRN (15:52)
[2019-10-17] MEDS ORDERED: Acetaminophen 325 MG Tab PO PRN (15:52)
[2019-10-17] MEDS: Sodium Chloride 0.9% 1,000 ML IV SCH (16:42)
--- NOTE | 2019-10-17 18:39 | PCM.HP.2 ---
H&P History of Present Illness - General Date of Service: 10/17/19 Admit Problem/Dx: Admission Diagnosis/Problem Admission Diagnosis/Problem Acute renal failure Source of Information: Patient History Limitations: Reports: No Limitations - History of Present Illness Initial Comments - Free Text/Narative: Shira is a 84 yo female who came to ED with generalized weakness,hypotension and dizziness of a day's duration.She had also had some loose stools for 3 days.No fever or chest pain.Shira has h/o CHF,Mitral stenosis,CKD and recent wound to the left knee. Generalized Pain Score (Numeric/FACES): 0 - Related Data Allergies/Adverse Reactions: Allergies Allergy/AdvReac Type Severity Reaction Status Date / Time No Known Allergies Allergy Verified 10/17/19 14:39 Home Medications: Home Meds Acetaminophen [Acetaminophen Extra Strength] 500 mg PO Q6H PRN 03/18/19 [History ] Aspirin 81 mg PO DAILY 03/18/19 [History] Enalapril [Vasotec] 1.25 mg PO DAILY 03/18/19 [History] Ezetimibe [Zetia] 10 mg PO BEDTIME 03/18/19 [History] PARoxetine HCl [Paxil] 40 mg PO DAILY 03/18/19 [History] Bumetanide [Bumex] 1 mg PO BID 07/14/19 [History] Metoprolol Tartrate 50 mg PO DAILY 07/14/19 [History] Spironolactone 50 mg PO DAILY 07/14/19 [History] atorvaSTATin [Lipitor] 40 mg PO BEDTIME 07/14/19 [History] Gabapentin [Neurontin] 100 mg PO BID 10/17/19 [History] Polyvinyl Alcohol [[place] Tears] 1 drop EYEBOTH BEDTIME 10/17/19 [History] Sulfamethoxazole/Trimethoprim [Septra DS] 1 tab PO BID 10/17/19 [History] Warfarin [Coumadin] 2.5 mg PO DAILY@199910/17/19 [History] allopurinoL [Zyloprim] 300 mg PO DAILY 10/17/19 [History] Past Medical History HEENT History: Reports: Cataract Cardiovascular History: Reports: Bypass, Heart Failure, Heart Valve Replacement Respiratory History: Reports: Sleep Apnea, Other (See Below) Other Respiratory History: Put powder in both lungs for fluid, from CHF. Has a frequent cough. [employer] History: Reports: Musculoskeletal History: Reports: Arthritis Dermatologic History: Reports: Other (See Below) Other Dermatologic History: Yellow nail syndrome. - Infectious Disease History Infectious Disease History: Reports: Chicken Pox, MRSA, Mumps, Other (See Below) Other Infectious Disease History: History MRSA, ingrown hair, buttock area, hospitalized. Patient states she had measles, unsure if Rubella or Rubeola. - Past Surgical History HEENT Surgical History: Reports: Cataract Surgery Musculoskeletal Surgical History: Reports: Knee Replacement, Shoulder Surgery Social & Family History - Family History Family Medical History: Noncontributory - Tobacco Use Smoking Status *Q: Never Smoker - Caffeine Use Caffeine Use: Reports: Coffee Other Caffeine Use: Drinks one cup of decaf coffee everyday, and rarely drinks soda. Caffeine Use Comment: Decaf coffee - Recreational Drug Use Recreational Drug Use: No H&P Review of Systems - Review of Systems: Review Of Systems: Comprehensive ROS is negative, except as noted in HPI. Exam - Exam Exam: See Below - Vital Signs Vital Signs: Last Vital Signs Temp 97.5 F 10/17/19 16:44 Pulse 73 10/17/19 16:44 Resp 18 10/17/19 16:44 BP 77/45 L 10/17/19 17:16 Pulse Ox 93 L 10/17/19 16:50 Weight: 69.037 kg - Exam General: Alert, Oriented, 4 HEENT: PERRLA, Hearing Intact, Mucosa Moist & [place], Nares Patent, Normal Nasal Septum, Posterior Pharynx Clear, Conjunctiva Clear, EOMI, EACs Clear, TMs Clear Neck: Supple, Trachea Midline, 2 Lungs: Clear to Auscultation, Normal Respiratory Effort Cardiovascular: Regular Rate, Regular Rhythm GI/Abdominal Exam: Normal Bowel Sounds, Soft, Non-Tender, No Organomegaly, No Distention, No Abnormal Bruit, No Mass, Pelvis Stable (Female) Exam: Deferred Rectal (Female) Exam: Deferred Back Exam: Normal Inspection, Full Range of Motion, NT Extremities: Normal Inspection, Normal Range of Motion, Non-Tender, No Pedal Edema, Normal Capillary Refill Skin: Warm, Dry, Intact Neurological: Cranial Nerves Intact, Reflexes Equal Bilateral Neuro Extensive - Mental Status: Alert, Oriented x3, Normal Mood/Affect, Normal Cognition Neuro Extensive - Motor, Sensory, Reflexes: CN II-XII Intact, Normal Gait, Normal Reflexes Psychiatric: Alert, Normal Affect, Normal Mood - Patient Data Lab Results Last 24 hrs: Laboratory Results - last 24 hr 10/17/19 10/17/19 10/17/19 Range/Units 14:47 15:10 15:10 WBC 11.7 (4.5-12.0) X10-3/uL RBC 3.14 L (3.23-5.20) x10(6)uL Hgb 9.0 L (11.5-15.5) g/dL Hct 27.6 L (30.0-51.3) % MCV 88.1 (80-96) fL MCH 28.8 (27.7-33.6) pg MCHC 32.7 (32.2-35.4) g/dL RDW 20.2 H (11.5-15.5) % Plt Count 269 (125-369) X10(3)uL MPV 8.4 (7.4-10.4) fL Neut % (Auto) 81.0 (46-82) % Lymph % (Auto) 9.7 L (13-37) % [place] % (Auto) 6.3 (4-12) % Eos % (Auto) 1 (1.0-5.0) % Baso % (Auto) 2 (0-2) % Neut # (Auto) 9.6 H (1.6-8.3) # Lymph # (Auto) 1.1 (0.6-5.0) # [place] # (Auto) 0.7 (0.0-1.3) # Eos # (Auto) 0.1 (0.0-0.8) # Baso # (Auto) 0.2 (0.0-0.2) # PT (9.0-11.1) sec INR (1.00-1.24) Sodium 131 L (135-145) mmol/L Potassium 5.1 (3.5-5.3) mmol/L Chloride 96 L (100-110) mmol/L Carbon Dioxide 21 (21-32) mmol/L BUN 95 H D (7-18) mg/dL Creatinine 6.7 H* (0.55-1.02) mg/dL Est Cr Clr Drug Dosing 5.12 mL/min Estimated GFR (MDRD) 6 L (>60) BUN/Creatinine Ratio 14.2 (9-20) Glucose 99 (80-116) mg/dL Calcium 9.3 (8.6-10.2) mg/dL Magnesium (1.8-2.5) mg/dL Total Bilirubin 0.2 (0.1-1.3) mg/dL AST 28 H D (5-25) IU/L ALT 14 D (12-36) U/L Alkaline Phosphatase 87 (56-112) IU/L C-Reactive Protein (0.5-0.9) mg/dL Total Protein 7.5 (6.0-8.0) g/dL Albumin 2.6 L (3.2-4.6) g/dL Globulin 4.9 g/dL Albumin/Globulin Ratio 0.5 Urine Color Yellow (YELLOW) Urine Appearance Clear (CLEAR) Urine pH 5.0 (5.0-6.5) Ur Specific [place] 1.025 (1.010-1.025) Urine Protein Negative (NEGATIVE) mg/dL Urine Glucose (UA) Normal (NORMAL) mg/dL Urine Ketones Negative (NEGATIVE) mg/dL Urine Occult Blood Moderate H (NEGATIVE) Urine Nitrite Negative (NEGATIVE) Urine Bilirubin Small H (NEGATIVE) Urine Urobilinogen Normal (NEGATIVE) mg/dL Ur Leukocyte Esterase Negative (NEGATIVE) Urine RBC 0-5 (0-5) Urine WBC 0-5 (0-5) Ur Squamous Epith Cells Rare (NS,R,O) Amorphous Sediment Few Urine Bacteria Rare H (NS) 10/17/19 10/17/19 10/17/19 Range/Units 15:10 15:10 15:10 WBC (4.5-12.0) X10-3/uL RBC (3.23-5.20) x10(6)uL Hgb (11.5-15.5) g/dL Hct (30.0-51.3) % MCV (80-96) fL MCH (27.7-33.6) pg MCHC (32.2-35.4) g/dL RDW (11.5-15.5) % Plt Count (125-369) X10(3)uL MPV (7.4-10.4) fL Neut % (Auto) (46-82) % Lymph % (Auto) (13-37) % [place] % (Auto) (4-12) % Eos % (Auto) (1.0-5.0) % Baso % (Auto) (0-2) % Neut # (Auto) (1.6-8.3) # Lymph # (Auto) (0.6-5.0) # [place] # (Auto) (0.0-1.3) # Eos # (Auto) (0.0-0.8) # Baso # (Auto) (0.0-0.2) # PT 51.4 H* (9.0-11.1) sec INR 5.31 H* (1.00-1.24) Sodium (135-145) mmol/L Potassium (3.5-5.3) mmol/L Chloride (100-110) mmol/L Carbon Dioxide (21-32) mmol/L BUN (7-18) mg/dL Creatinine (0.55-1.02) mg/dL Est Cr Clr Drug Dosing mL/min Estimated GFR (MDRD) (>60) BUN/Creatinine Ratio (9-20) Glucose (80-116) mg/dL Calcium (8.6-10.2) mg/dL Magnesium 2.4 (1.8-2.5) mg/dL Total Bilirubin (0.1-1.3) mg/dL AST (5-25) IU/L ALT (12-36) U/L Alkaline Phosphatase (56-112) IU/L C-Reactive Protein 20.2 H* (0.5-0.9) mg/dL Total Protein (6.0-8.0) g/dL Albumin (3.2-4.6) g/dL Globulin g/dL Albumin/Globulin Ratio Urine Color (YELLOW) Urine Appearance (CLEAR) Urine pH (5.0-6.5) Ur Specific [place] (1.010-1.025) Urine Protein (NEGATIVE) mg/dL Urine Glucose (UA) (NORMAL) mg/dL Urine Ketones (NEGATIVE) mg/dL Urine Occult Blood (NEGATIVE) Urine Nitrite (NEGATIVE) Urine Bilirubin (NEGATIVE) Urine Urobilinogen (NEGATIVE) mg/dL Ur Leukocyte Esterase (NEGATIVE) Urine RBC (0-5) Urine WBC (0-5) Ur Squamous Epith Cells (NS,R,O) Amorphous Sediment Urine Bacteria (NS) Result Diagrams: 10/18/19 06:35 10/18/19 06:35 Hugo Results Last 24 hrs: Microbiology 10/17/19 16:38 C. difficile Antigen & Toxins A,B - Final Stool / Feces Sepsis Event Note - Evaluation Sepsis Screening Result: No Definite Risk - Focused Exam Vital Signs: Vital Signs Temp Pulse Resp BP Pulse Ox Pulse Ox 10/17/19 17:16 77/45 L 10/17/19 16:50 93 L 10/17/19 16:44 97.5 F 73 18 82/46 L 93 L 10/17/19 14:10 98.0 F 98 18 138/72 94 L Date Exam was Performed: 10/18/19 Time Exam was Performed: 08:40 - Problem List (1) Acute renal failure SNOMED Code(s): 58263915 ICD Code: N17.9 - ACUTE KIDNEY FAILURE, UNSPECIFIED Status: Acute Current Visit: Yes Qualifiers: Acute renal failure type: unspecified Qualified Code(s): N17.9 - Acute kidney failure, unspecified (2) Palliative care status SNOMED Code(s): 724349532 ICD Code: Z51.5 - ENCOUNTER FOR PALLIATIVE CARE Status: Acute Current Visit: Yes (3) Chronic infection of left knee SNOMED Code(s): 869831388, 055757912 ICD Code: M00.9 - PYOGENIC ARTHRITIS, UNSPECIFIED Status: Chronic Current Visit: Yes (4) Hypotension SNOMED Code(s): 94164882 ICD Code: I95.9 - HYPOTENSION, UNSPECIFIED Status: Acute Current Visit: Yes Qualifiers: Hypotension type: hypotension due to hypovolemia Qualified Code(s): I95.89 - Other hypotension; E86.1 - Hypovolemia (5) Severe dehydration SNOMED Code(s): 673238089 ICD Code: E86.0 - DEHYDRATION Status: Acute Current Visit: Yes (6) Afib SNOMED Code(s): 01427294 ICD Code: I48.91 - UNSPECIFIED ATRIAL FIBRILLATION Status: Acute Current Visit: No Qualifiers: Atrial fibrillation type: paroxysmal Qualified Code(s): I48.0 - Paroxysmal atrial fibrillation (7) Osteoarthritis SNOMED Code(s): 213962776 ICD Code: M19.90 - UNSPECIFIED OSTEOARTHRITIS, UNSPECIFIED SITE Status: Acute Current Visit: No (8) Valvular heart disease Status: Acute Current Visit: No (9) CAD (coronary artery disease) SNOMED Code(s): 89726506 ICD Code: I25.10 - ATHSCL HEART DISEASE OF [place] CORONARY ARTERY W/O ANG PCTRS Status: Chronic Current Visit: No Qualifiers: Coronary Disease-Associated Artery/Lesion type: bypass graft [place] vs. transplanted heart: [place] heart Associated angina: without angina Qualified Code(s): I25.810 - Atherosclerosis of coronary artery bypass graft(s) without angina pectoris (10) HTN (hypertension) SNOMED Code(s): 31377303 ICD Code: I10 - ESSENTIAL (PRIMARY) HYPERTENSION Status: Chronic Current Visit: No Qualifiers: Hypertension type: essential hypertension Qualified Code(s): I10 - Essential (primary) hypertension Problem List Initiated/Reviewed/Updated: Yes Orders Last 24hrs: Active Orders 24 hr Category Date Time Status Admission Status [Patient Status] [ADT] Routine ADT 10/17/19 15:46 Active Height and Weight [RC] 06 Care 10/17/19 15:52 Active Intake and Output [RC] 06,14,22 Care 10/17/19 15:53 Active Oxygen Therapy [RC] PRN Care 10/17/19 15:52 Active Vital Signs [RC] QSHIFT Care 10/17/19 15:52 Active 2 Gram Sodium Diet [DIET] Diet 10/17/19 Dinner Ordered BASIC METABOLIC PANEL,BMP [CHEM] AM Lab 10/18/19 05:11 Ordered CBC WITH AUTO DIFF [HEME] AM Lab 10/18/19 05:11 Ordered INR,PT,PROTHROMBIN TIME [COAG] AM Lab 10/18/19 05:11 Ordered Acetaminophen [Tylenol Extra Strength] Med 10/17/19 18:35 Ordered 500 mg PO Q6H PRN Acetaminophen [Tylenol] Med 10/17/19 15:52 Active 650 mg PO Q4H PRN Aspirin Med 10/18/19 09:00 Ordered 81 mg PO DAILY Ondansetron [Zofran ODT] Med 10/17/19 15:52 Active 4 mg PO Q6H PRN Ondansetron [Zofran] Med 10/17/19 15:52 Active 4 mg IVPUSH Q6H PRN PARoxetine HCl [Paxil] Med 10/18/19 09:00 Ordered 40 mg PO DAILY Polyvinyl Alcohol [LiquiTears 1.4% Ophth Soln] Med 10/17/19 21:00 Ordered 1 drop EYEBOTH BEDTIME Sodium Chloride 0.9% [Normal Saline] 1,000 ml Med 10/17/19 16:00 Active IV ASDIRECTED Sodium Chloride 0.9% [Saline Flush] Med 10/17/19 14:47 Active 10 ml FLUSH ASDIRECTED PRN Sulfamethoxazole/Trimethoprim [Septra DS] Med 10/18/19 09:00 Ordered 1 tab PO DAILY Peripheral IV Insertion Adult [OM.PC] Routine Oth 10/17/19 14:47 Ordered Resuscitation Status Routine Resus Stat 10/17/19 15:52 Ordered EKG 12 Lead [EK] Routine Ther 10/17/19 14:47 Ordered Medication Orders Acetaminophen (Tylenol) 650 mg PO Q4H PRN PRN Reason: Pain (Mild 1-3)/fever Sodium Chloride (Normal Saline) 1,000 mls @ 75 mls/hr IV ASDIRECTED FLAKITA Last Admin: 10/17/19 16:42 Dose: 75 mls/hr Ondansetron HCl (Zofran Odt) 4 mg PO Q6H PRN PRN Reason: nausea, able to take PO Ondansetron HCl (Zofran) 4 mg IVPUSH Q6H PRN PRN Reason: Nausea/Vomiting Sodium Chloride (Saline Flush) 10 ml FLUSH ASDIRECTED PRN PRN Reason: Keep Vein Open Last Admin: 10/17/19 15:20 Dose: 10 ml Assessment/Plan Comment:: Continue rehydration.Hold antihypertensives and diuretics.
[2019-10-17] MEDS: Polyvinyl Alcohol 1.4% Ophth Soln 15 ML Bottle EYEBOTH SCH (21:40)
[2019-10-18] MEDS: Sodium Chloride 0.9% 1,000 ML IV SCH ×3 (05:45→18:55)
[2019-10-18] MEDS ORDERED: Sodium Chloride 0.9% 1,000 ML IV SCH (08:45)
--- NOTE | 2019-10-18 08:45 | PCM.PN ---
- General Info Date of Service: 10/18/19 Subjective Update: Complains of lightheadedness when she gets up. Functional Status: Reports: Pain Controlled - Review of Systems General: Reports: Weakness HEENT: Reports: No Symptoms Pulmonary: Reports: No Symptoms Cardiovascular: Reports: No Symptoms Gastrointestinal: Reports: No Symptoms Genitourinary: Reports: No Symptoms - Patient Data Vitals - Most Recent: Last Vital Signs Temp 98.1 F 10/18/19 08:00 Pulse 97 10/18/19 08:00 Resp 18 10/18/19 08:00 BP 81/44 L 10/18/19 08:00 Pulse Ox 96 10/18/19 08:00 Weight - Most Recent: 69.037 kg I&O - Last 24 Hours: Intake & Output 10/17/19 10/18/19 10/18/19 22:59 06:59 14:59 Intake Total 894 844 Output Total 150 Balance 894 844 -150 Lab Results Last 24 Hours: Laboratory Results - last 24 hr 10/17/19 10/17/19 10/17/19 Range/Units 14:47 15:10 15:10 WBC 11.7 (4.5-12.0) X10-3/uL RBC 3.14 L (3.23-5.20) x10(6)uL Hgb 9.0 L (11.5-15.5) g/dL Hct 27.6 L (30.0-51.3) % MCV 88.1 (80-96) fL MCH 28.8 (27.7-33.6) pg MCHC 32.7 (32.2-35.4) g/dL RDW 20.2 H (11.5-15.5) % Plt Count 269 (125-369) X10(3)uL MPV 8.4 (7.4-10.4) fL Neut % (Auto) 81.0 (46-82) % Lymph % (Auto) 9.7 L (13-37) % [place] % (Auto) 6.3 (4-12) % Eos % (Auto) 1 (1.0-5.0) % Baso % (Auto) 2 (0-2) % Neut # (Auto) 9.6 H (1.6-8.3) # Lymph # (Auto) 1.1 (0.6-5.0) # [place] # (Auto) 0.7 (0.0-1.3) # Eos # (Auto) 0.1 (0.0-0.8) # Baso # (Auto) 0.2 (0.0-0.2) # Add Manual Diff Neutrophils % (Manual) (46-82) % Band Neutrophils % (0-6) % Lymphocytes % (Manual) (13-37) % Monocytes % (Manual) (4-12) % PT (9.0-11.1) sec INR (1.00-1.24) Sodium 131 L (135-145) mmol/L Potassium 5.1 (3.5-5.3) mmol/L Chloride 96 L (100-110) mmol/L Carbon Dioxide 21 (21-32) mmol/L BUN 95 H D (7-18) mg/dL Creatinine 6.7 H* (0.55-1.02) mg/dL Est Cr Clr Drug Dosing 5.12 mL/min Estimated GFR (MDRD) 6 L (>60) BUN/Creatinine Ratio 14.2 (9-20) Glucose 99 (80-116) mg/dL Calcium 9.3 (8.6-10.2) mg/dL Magnesium (1.8-2.5) mg/dL Total Bilirubin 0.2 (0.1-1.3) mg/dL AST 28 H D (5-25) IU/L ALT 14 D (12-36) U/L Alkaline Phosphatase 87 (56-112) IU/L C-Reactive Protein (0.5-0.9) mg/dL Total Protein 7.5 (6.0-8.0) g/dL Albumin 2.6 L (3.2-4.6) g/dL Globulin 4.9 g/dL Albumin/Globulin Ratio 0.5 Urine Color Yellow (YELLOW) Urine Appearance Clear (CLEAR) Urine pH 5.0 (5.0-6.5) Ur Specific [place] 1.025 (1.010-1.025) Urine Protein Negative (NEGATIVE) mg/dL Urine Glucose (UA) Normal (NORMAL) mg/dL Urine Ketones Negative (NEGATIVE) mg/dL Urine Occult Blood Moderate H (NEGATIVE) Urine Nitrite Negative (NEGATIVE) Urine Bilirubin Small H (NEGATIVE) Urine Urobilinogen Normal (NEGATIVE) mg/dL Ur Leukocyte Esterase Negative (NEGATIVE) Urine RBC 0-5 (0-5) Urine WBC 0-5 (0-5) Ur Squamous Epith Cells Rare (NS,R,O) Amorphous Sediment Few Urine Bacteria Rare H (NS) 10/17/19 10/17/19 10/17/19 Range/Units 15:10 15:10 15:10 WBC (4.5-12.0) X10-3/uL RBC (3.23-5.20) x10(6)uL Hgb (11.5-15.5) g/dL Hct (30.0-51.3) % MCV (80-96) fL MCH (27.7-33.6) pg MCHC (32.2-35.4) g/dL RDW (11.5-15.5) % Plt Count (125-369) X10(3)uL MPV (7.4-10.4) fL Neut % (Auto) (46-82) % Lymph % (Auto) (13-37) % [place] % (Auto) (4-12) % Eos % (Auto) (1.0-5.0) % Baso % (Auto) (0-2) % Neut # (Auto) (1.6-8.3) # Lymph # (Auto) (0.6-5.0) # [place] # (Auto) (0.0-1.3) # Eos # (Auto) (0.0-0.8) # Baso # (Auto) (0.0-0.2) # Add Manual Diff Neutrophils % (Manual) (46-82) % Band Neutrophils % (0-6) % Lymphocytes % (Manual) (13-37) % Monocytes % (Manual) (4-12) % PT 51.4 H* (9.0-11.1) sec INR 5.31 H* (1.00-1.24) Sodium (135-145) mmol/L Potassium (3.5-5.3) mmol/L Chloride (100-110) mmol/L Carbon Dioxide (21-32) mmol/L BUN (7-18) mg/dL Creatinine (0.55-1.02) mg/dL Est Cr Clr Drug Dosing mL/min Estimated GFR (MDRD) (>60) BUN/Creatinine Ratio (9-20) Glucose (80-116) mg/dL Calcium (8.6-10.2) mg/dL Magnesium 2.4 (1.8-2.5) mg/dL Total Bilirubin (0.1-1.3) mg/dL AST (5-25) IU/L ALT (12-36) U/L Alkaline Phosphatase (56-112) IU/L C-Reactive Protein 20.2 H* (0.5-0.9) mg/dL Total Protein (6.0-8.0) g/dL Albumin (3.2-4.6) g/dL Globulin g/dL Albumin/Globulin Ratio Urine Color (YELLOW) Urine Appearance (CLEAR) Urine pH (5.0-6.5) Ur Specific [place] (1.010-1.025) Urine Protein (NEGATIVE) mg/dL Urine Glucose (UA) (NORMAL) mg/dL Urine Ketones (NEGATIVE) mg/dL Urine Occult Blood (NEGATIVE) Urine Nitrite (NEGATIVE) Urine Bilirubin (NEGATIVE) Urine Urobilinogen (NEGATIVE) mg/dL Ur Leukocyte Esterase (NEGATIVE) Urine RBC (0-5) Urine WBC (0-5) Ur Squamous Epith Cells (NS,R,O) Amorphous Sediment Urine Bacteria (NS) 10/18/19 10/18/19 10/18/19 Range/Units 06:35 06:35 06:35 WBC 8.4 (4.5-12.0) X10-3/uL RBC 2.86 L (3.23-5.20) x10(6)uL Hgb 7.8 L (11.5-15.5) g/dL Hct 25.0 L (30.0-51.3) % MCV 87.4 (80-96) fL MCH 27.5 L (27.7-33.6) pg MCHC 31.4 L (32.2-35.4) g/dL RDW 20.1 H (11.5-15.5) % Plt Count 244 (125-369) X10(3)uL MPV 8.2 (7.4-10.4) fL Neut % (Auto) (46-82) % Lymph % (Auto) (13-37) % [place] % (Auto) (4-12) % Eos % (Auto) (1.0-5.0) % Baso % (Auto) (0-2) % Neut # (Auto) (1.6-8.3) # Lymph # (Auto) (0.6-5.0) # [place] # (Auto) (0.0-1.3) # Eos # (Auto) (0.0-0.8) # Baso # (Auto) (0.0-0.2) # Add Manual Diff Yes Neutrophils % (Manual) 74 (46-82) % Band Neutrophils % 5 (0-6) % Lymphocytes % (Manual) 15 (13-37) % Monocytes % (Manual) 6 (4-12) % PT 58.7 H* (9.0-11.1) sec INR 6.12 H* (1.00-1.24) Sodium 131 L (135-145) mmol/L Potassium 5.1 (3.5-5.3) mmol/L Chloride 98 L (100-110) mmol/L Carbon Dioxide 22 (21-32) mmol/L BUN 95 H (7-18) mg/dL Creatinine 6.5 H* (0.55-1.02) mg/dL Est Cr Clr Drug Dosing 5.28 mL/min Estimated GFR (MDRD) 6 L (>60) BUN/Creatinine Ratio 14.6 (9-20) Glucose 85 (80-116) mg/dL Calcium 8.5 L (8.6-10.2) mg/dL Magnesium (1.8-2.5) mg/dL Total Bilirubin (0.1-1.3) mg/dL AST (5-25) IU/L ALT (12-36) U/L Alkaline Phosphatase (56-112) IU/L C-Reactive Protein (0.5-0.9) mg/dL Total Protein (6.0-8.0) g/dL Albumin (3.2-4.6) g/dL Globulin g/dL Albumin/Globulin Ratio Urine Color (YELLOW) Urine Appearance (CLEAR) Urine pH (5.0-6.5) Ur Specific [place] (1.010-1.025) Urine Protein (NEGATIVE) mg/dL Urine Glucose (UA) (NORMAL) mg/dL Urine Ketones (NEGATIVE) mg/dL Urine Occult Blood (NEGATIVE) Urine Nitrite (NEGATIVE) Urine Bilirubin (NEGATIVE) Urine Urobilinogen (NEGATIVE) mg/dL Ur Leukocyte Esterase (NEGATIVE) Urine RBC (0-5) Urine WBC (0-5) Ur Squamous Epith Cells (NS,R,O) Amorphous Sediment Urine Bacteria (NS) Hugo Results Last 24 Hours: Microbiology 10/17/19 16:38 C. difficile Antigen & Toxins A,B - Final Stool / Feces Med Orders - Current: Current Medications Acetaminophen (Tylenol Extra Strength) 500 mg PO Q6H PRN PRN Reason: Pain Artificial Tears (Liquitears 1.4% Ophth Soln) 0 ml EYEBOTH BEDTIME [facility] Last Admin: 10/17/19 21:40 Dose: 1 drop Aspirin (Aspirin) 81 mg PO DAILY [facility] Doxycycline Hyclate (Vibra-Tabs) 100 mg PO BID [facility] Sodium Chloride (Normal Saline) 1,000 mls @ 75 mls/hr IV ASDIRECTED [facility] Last Admin: 10/18/19 05:45 Dose: 75 mls/hr Sodium Chloride (Normal Saline) 1,000 mls @ 900 mls/hr IV ASDIRECTED [facility] Ondansetron HCl (Zofran Odt) 4 mg PO Q6H PRN PRN Reason: nausea, able to take PO Ondansetron HCl (Zofran) 4 mg IVPUSH Q6H PRN PRN Reason: Nausea/Vomiting Paroxetine HCl (Paxil) 40 mg PO DAILY [facility] Sodium Chloride (Saline Flush) 10 ml FLUSH ASDIRECTED PRN PRN Reason: Keep Vein Open Last Admin: 10/17/19 15:20 Dose: 10 ml Discontinued Medications Acetaminophen (Tylenol) 650 mg PO Q4H PRN PRN Reason: Pain (Mild 1-3)/fever Sodium Chloride (Normal Saline) 500 mls @ 999 mls/hr IV .BOLUS ONE Stop: 10/17/19 15:21 Last Admin: 10/17/19 15:20 Dose: 999 mls/hr - Exam General: Alert, Oriented HEENT: Pupils Equal Neck: Supple Lungs: Clear to Auscultation Cardiovascular: Regular Rate, Murmurs Extremities: Normal Inspection Skin: Warm Neurological: No New Focal Deficit Psy/Mental Status: Alert Sepsis Event Note - Evaluation Sepsis Screening Result: No Definite Risk - Focused Exam Vital Signs: Vital Signs Temp Pulse Resp BP Pulse Ox 10/18/19 08:00 98.1 F 97 18 81/44 L 96 05/05/20 03:04 98.2 F 74 16 82/46 L 93 L 10/17/19 23:19 98 F 72 16 88/52 L 94 L Date Exam was Performed: 10/18/19 Time Exam was Performed: 08:44 - Problem List & Annotations (1) Acute renal failure SNOMED Code(s): 40172563 Code(s): N17.9 - ACUTE KIDNEY FAILURE, UNSPECIFIED Status: Acute Current Visit: Yes Qualifiers: Acute renal failure type: unspecified Qualified Code(s): N17.9 - Acute kidney failure, unspecified (2) Palliative care status SNOMED Code(s): 916616733 Code(s): Z51.5 - ENCOUNTER FOR PALLIATIVE CARE Status: Acute Current Visit: Yes (3) Chronic infection of left knee SNOMED Code(s): 610502583, 336527695 Code(s): M00.9 - PYOGENIC ARTHRITIS, UNSPECIFIED Status: Chronic Current Visit: Yes (4) Hypotension SNOMED Code(s): 08506590 Code(s): I95.9 - HYPOTENSION, UNSPECIFIED Status: Acute Current Visit: Yes Qualifiers: Hypotension type: hypotension due to hypovolemia Qualified Code(s): I95.89 - Other hypotension; E86.1 - Hypovolemia (5) Severe dehydration SNOMED Code(s): 330632332 Code(s): E86.0 - DEHYDRATION Status: Acute Current Visit: Yes (6) Afib SNOMED Code(s): 73610823 Code(s): I48.91 - UNSPECIFIED ATRIAL FIBRILLATION Status: Acute Current Visit: No Qualifiers: Atrial fibrillation type: paroxysmal Qualified Code(s): I48.0 - Paroxysmal atrial fibrillation (7) Osteoarthritis SNOMED Code(s): 174012300 Code(s): M19.90 - UNSPECIFIED OSTEOARTHRITIS, UNSPECIFIED SITE Status: Acute Current Visit: No (8) Valvular heart disease Status: Acute Current Visit: No (9) CAD (coronary artery disease) SNOMED Code(s): 60930602 Code(s): I25.10 - ATHSCL HEART DISEASE OF [place] CORONARY ARTERY W/O ANG PCTRS Status: Chronic Current Visit: No Qualifiers: Coronary Disease-Associated Artery/Lesion type: bypass graft [place] vs. transplanted heart: [place] heart Associated angina: without angina Qualified Code(s): I25.810 - Atherosclerosis of coronary artery bypass graft(s) without angina pectoris (10) HTN (hypertension) SNOMED Code(s): 65515672 Code(s): I10 - ESSENTIAL (PRIMARY) HYPERTENSION Status: Chronic Current Visit: No Qualifiers: Hypertension type: essential hypertension Qualified Code(s): I10 - Essential (primary) hypertension - Problem List Review Problem List Initiated/Reviewed/Updated: Yes - My Orders Last 24 Hours: My Active Orders 10/17/19 18:35 Acetaminophen [Tylenol Extra Strength] 500 mg PO Q6H PRN 10/17/19 21:00 Polyvinyl Alcohol [LiquiTears 1.4% Ophth Soln] 0 ml EYEBOTH BEDTIME 10/18/19 08:43 TYPE AND SCREEN [BBK] Routine 10/18/19 08:45 Sodium Chloride 0.9% [Normal Saline] 1,000 ml IV ASDIRECTED 10/18/19 09:00 Aspirin 81 mg PO DAILY Doxycycline [Vibra-Tabs] 100 mg PO BID PARoxetine [Paxil] 40 mg PO DAILY 10/19/19 05:11 BASIC METABOLIC PANEL,BMP [CHEM] AM CBC WITH AUTO DIFF [HEME] AM PRO B-TYPE NATRIUR PEPT,BNPPRO [CHEM] DAILY 10/20/19 05:11 PRO B-TYPE NATRIUR PEPT,BNPPRO [CHEM] DAILY - Plan Plan:: Continue rehydration.Give one bolus,then increase fluids after to 125. repeat labs in AM.
[2019-10-18] MEDS: PARoxetine 20 MG Tab PO SCH (08:47)
[2019-10-18] MEDS: Aspirin 81 MG Tab.Chew PO SCH (08:47)
[2019-10-18] MEDS ORDERED: Sulfamethoxazole/Trimethoprim 800-160 MG Tab PO SCH (09:00)
[2019-10-18] MEDS: Doxycycline 100 MG Tab PO SCH ×2 (09:26→20:24)
[2019-10-18] MEDS: Atropine/Diphenoxylate 0.025-2.5 MG Tab PO PRN (15:49)
[2019-10-18] MEDS: Acetaminophen 500 MG Tab PO PRN (15:51)
[2019-10-18] MEDS: Polyvinyl Alcohol 1.4% Ophth Soln 15 ML Bottle EYEBOTH SCH (20:24)
[2019-10-18] MEDS: Sodium Chloride 0.9% 10 ML Syringe FLUSH PRN (23:37)
[2019-10-19] MEDS: Sodium Chloride 0.9% 1,000 ML IV SCH (01:43)
[2019-10-19] MEDS ORDERED: Sodium Chloride 0.9% 1,000 ML IV SCH (03:30)
[2019-10-19] MEDS: Aspirin 81 MG Tab.Chew PO SCH (08:20)
[2019-10-19] MEDS: PARoxetine 20 MG Tab PO SCH (08:20)
[2019-10-19] MEDS: Doxycycline 100 MG Tab PO SCH ×2 (08:21→20:07)
--- NOTE | 2019-10-19 08:59 | PCM.PN ---
- General Info Date of Service: 10/19/19 Subjective Update: Complains of lightheadedness when she gets up.Wound drainage increased. BP better. - Review of Systems General: Reports: No Symptoms HEENT: Reports: No Symptoms Pulmonary: Reports: No Symptoms Cardiovascular: Reports: No Symptoms - Patient Data Vitals - Most Recent: Last Vital Signs Temp 97.4 F 10/18/19 23:00 Pulse 90 10/19/19 03:30 Resp 20 10/19/19 03:30 BP 102/56 L 10/19/19 03:30 Pulse Ox 98 10/19/19 03:30 Weight - Most Recent: 74.503 kg I&O - Last 24 Hours: Intake & Output 10/18/19 10/19/19 10/19/19 22:59 06:59 14:59 Intake Total 1523 980 Output Total 500 500 Balance 1023 480 Lab Results Last 24 Hours: Laboratory Results - last 24 hr 10/18/19 10/19/19 10/19/19 Range/Units 06:35 06:25 06:25 WBC 7.4 (4.5-12.0) X10-3/uL RBC 2.81 L (3.23-5.20) x10(6)uL Hgb 7.7 L (11.5-15.5) g/dL Hct 24.3 L (30.0-51.3) % MCV 86.6 (80-96) fL MCH 27.4 L (27.7-33.6) pg MCHC 31.6 L (32.2-35.4) g/dL RDW 19.5 H (11.5-15.5) % Plt Count 249 (125-369) X10(3)uL MPV 8.3 (7.4-10.4) fL Neut % (Auto) 77.8 (46-82) % Lymph % (Auto) 11.7 L (13-37) % Lares % (Auto) 7.4 (4-12) % Eos % (Auto) 3 (1.0-5.0) % Baso % (Auto) 1 (0-2) % Neut # (Auto) 5.8 (1.6-8.3) # Lymph # (Auto) 0.9 (0.6-5.0) # Lares # (Auto) 0.5 (0.0-1.3) # Eos # (Auto) 0.2 (0.0-0.8) # Baso # (Auto) 0.0 (0.0-0.2) # Sodium 133 L (135-145) mmol/L Potassium 5.4 H (3.5-5.3) mmol/L Chloride 103 D (100-110) mmol/L Carbon Dioxide 20 L (21-32) mmol/L BUN 80 H D (7-18) mg/dL Creatinine 4.9 H* (0.55-1.02) mg/dL Est Cr Clr Drug Dosing 7.00 mL/min Estimated GFR (MDRD) 8 L (>60) BUN/Creatinine Ratio 16.3 (9-20) Glucose 94 (80-116) mg/dL Calcium 8.7 (8.6-10.2) mg/dL NT-Pro-B Natriuret Pep (<=450) pg/mL Blood Type A POSITIVE Gel Antibody Screen Negative Crossmatch See Detail 10/19/19 Range/Units 06:25 WBC (4.5-12.0) X10-3/uL RBC (3.23-5.20) x10(6)uL Hgb (11.5-15.5) g/dL Hct (30.0-51.3) % MCV (80-96) fL MCH (27.7-33.6) pg MCHC (32.2-35.4) g/dL RDW (11.5-15.5) % Plt Count (125-369) X10(3)uL MPV (7.4-10.4) fL Neut % (Auto) (46-82) % Lymph % (Auto) (13-37) % Lares % (Auto) (4-12) % Eos % (Auto) (1.0-5.0) % Baso % (Auto) (0-2) % Neut # (Auto) (1.6-8.3) # Lymph # (Auto) (0.6-5.0) # Lares # (Auto) (0.0-1.3) # Eos # (Auto) (0.0-0.8) # Baso # (Auto) (0.0-0.2) # Sodium (135-145) mmol/L Potassium (3.5-5.3) mmol/L Chloride (100-110) mmol/L Carbon Dioxide (21-32) mmol/L BUN (7-18) mg/dL Creatinine (0.55-1.02) mg/dL Est Cr Clr Drug Dosing mL/min Estimated GFR (MDRD) (>60) BUN/Creatinine Ratio (9-20) Glucose (80-116) mg/dL Calcium (8.6-10.2) mg/dL NT-Pro-B Natriuret Pep 06892 H* (<=450) pg/mL Blood Type Gel Antibody Screen Crossmatch Med Orders - Current: Current Medications Acetaminophen (Tylenol Extra Strength) 500 mg PO Q6H PRN PRN Reason: Pain Last Admin: 10/18/19 15:51 Dose: 500 mg Artificial Tears (Liquitears 1.4% Ophth Soln) 0 ml EYEBOTH BEDTIME [facility] Last Admin: 10/18/19 20:24 Dose: 1 drop Aspirin (Aspirin) 81 mg PO DAILY [facility] Last Admin: 10/19/19 08:20 Dose: 81 mg Ceftriaxone Sodium (Rocephin) 2 gm IVPUSH Q24H [facility] Diphenoxylate HCl/Atropine (Lomotil 0.025-2.5 Mg) 1 tab PO BID PRN PRN Reason: Diarrhea Last Admin: 10/18/19 15:49 Dose: 1 tab Doxycycline Hyclate (Vibra-Tabs) 100 mg PO BID [facility] Last Admin: 10/19/19 08:21 Dose: 100 mg Furosemide (Lasix) 20 mg IVPUSH NOW ONE Stop: 10/19/19 16:01 Sodium Chloride (Normal Saline) 1,000 mls @ 900 mls/hr IV ASDIRECTED [facility] Last Admin: 10/18/19 09:33 Dose: 900 mls/hr Sodium Chloride (Normal Saline) 250 mls @ 100 mls/hr IV ASDIRECTED [facility] Ondansetron HCl (Zofran Odt) 4 mg PO Q6H PRN PRN Reason: nausea, able to take PO Ondansetron HCl (Zofran) 4 mg IVPUSH Q6H PRN PRN Reason: Nausea/Vomiting Paroxetine HCl (Paxil) 40 mg PO DAILY [facility] Last Admin: 10/19/19 08:20 Dose: 40 mg Sodium Chloride (Saline Flush) 10 ml FLUSH ASDIRECTED PRN PRN Reason: Keep Vein Open Last Admin: 10/18/19 23:37 Dose: 10 ml Discontinued Medications Acetaminophen (Tylenol) 650 mg PO Q4H PRN PRN Reason: Pain (Mild 1-3)/fever Sodium Chloride (Normal Saline) 500 mls @ 999 mls/hr IV .BOLUS ONE Stop: 10/17/19 15:21 Last Admin: 10/17/19 15:20 Dose: 999 mls/hr Sodium Chloride (Normal Saline) 1,000 mls @ 75 mls/hr IV ASDIRECTED [facility] Last Admin: 10/18/19 05:45 Dose: 75 mls/hr Sodium Chloride (Normal Saline) 1,000 mls @ 75 mls/hr IV ASDIRECTED [facility] Last Admin: 10/19/19 01:43 Dose: 150 mls/hr Sodium Chloride (Normal Saline) 1,000 mls @ 75 mls/hr IV ASDIRECTED [facility] - Exam General: Alert, Oriented HEENT: Pupils Equal Neck: Supple Lungs: Rales Cardiovascular: Regular Rate Extremities: Pedal Edema, Joint Swelling Sepsis Event Note - Evaluation Sepsis Screening Result: No Definite Risk - Focused Exam Vital Signs: Vital Signs Temp Pulse Resp BP Pulse Ox 10/19/19 03:30 90 20 102/56 L 98 10/18/19 23:00 97.4 F 88 16 102/56 L 97 Date Exam was Performed: 10/19/19 Time Exam was Performed: 08:57 - Problem List & Annotations (1) Acute renal failure SNOMED Code(s): 38818501 Code(s): N17.9 - ACUTE KIDNEY FAILURE, UNSPECIFIED Status: Acute Current Visit: Yes Qualifiers: Acute renal failure type: unspecified Qualified Code(s): N17.9 - Acute kidney failure, unspecified (2) Palliative care status SNOMED Code(s): 298275150 Code(s): Z51.5 - ENCOUNTER FOR PALLIATIVE CARE Status: Acute Current Visit: Yes (3) Chronic infection of left knee SNOMED Code(s): 266472634, 279679130 Code(s): M00.9 - PYOGENIC ARTHRITIS, UNSPECIFIED Status: Chronic Current Visit: Yes (4) Hypotension SNOMED Code(s): 09584444 Code(s): I95.9 - HYPOTENSION, UNSPECIFIED Status: Acute Current Visit: Yes Qualifiers: Hypotension type: hypotension due to hypovolemia Qualified Code(s): I95.89 - Other hypotension; E86.1 - Hypovolemia (5) Severe dehydration SNOMED Code(s): 239186927 Code(s): E86.0 - DEHYDRATION Status: Acute Current Visit: Yes (6) Afib SNOMED Code(s): 65186037 Code(s): I48.91 - UNSPECIFIED ATRIAL FIBRILLATION Status: Acute Current Visit: No Qualifiers: Atrial fibrillation type: paroxysmal Qualified Code(s): I48.0 - Paroxysmal atrial fibrillation (7) Osteoarthritis SNOMED Code(s): 980954299 Code(s): M19.90 - UNSPECIFIED OSTEOARTHRITIS, UNSPECIFIED SITE Status: Acute Current Visit: No (8) Valvular heart disease Status: Acute Current Visit: No (9) CAD (coronary artery disease) SNOMED Code(s): 95948636 Code(s): I25.10 - ATHSCL HEART DISEASE OF [place] CORONARY ARTERY W/O ANG PCTRS Status: Chronic Current Visit: No Qualifiers: Coronary Disease-Associated Artery/Lesion type: bypass graft [place] vs. transplanted heart: [place] heart Associated angina: without angina Qualified Code(s): I25.810 - Atherosclerosis of coronary artery bypass graft(s) without angina pectoris (10) HTN (hypertension) SNOMED Code(s): 77754859 Code(s): I10 - ESSENTIAL (PRIMARY) HYPERTENSION Status: Chronic Current Visit: No Qualifiers: Hypertension type: essential hypertension Qualified Code(s): I10 - Essential (primary) hypertension - Problem List Review Problem List Initiated/Reviewed/Updated: Yes - My Orders Last 24 Hours: My Active Orders 10/18/19 08:45 Sodium Chloride 0.9% [Normal Saline] 1,000 ml IV ASDIRECTED 10/18/19 09:00 Aspirin 81 mg PO DAILY Doxycycline [Vibra-Tabs] 100 mg PO BID PARoxetine [Paxil] 40 mg PO DAILY 10/18/19 15:25 Atropine/Diphenoxylate [Lomotil 0.025-2.5 MG] 1 tab PO BID PRN 10/19/19 08:54 RED BLOOD CELLS LP [BBK] Urgent Transfuse Red Blood Cells [COMM] Urgent 10/19/19 09:00 Sodium Chloride 0.9% [Normal Saline] 250 ml IV ASDIRECTED cefTRIAXone [Rocephin] 2 gm IVPUSH Q24H 10/19/19 16:00 Furosemide [Lasix] 20 mg IVPUSH NOW ONE 10/20/19 05:11 BASIC METABOLIC PANEL,BMP [CHEM] AM CBC WITH AUTO DIFF [HEME] AM PRO B-TYPE NATRIUR PEPT,BNPPRO [CHEM] DAILY - Plan Plan:: I will add Rocephin,. Stop fluids. Transfuse 1 unit. Repeat Labs in Am,possible discharge to ortho appointment tomorrow
[2019-10-19] MEDS ORDERED: Sodium Chloride 0.9% 250 ML IV SCH (09:00)
[2019-10-19] MEDS: cefTRIAXone 2 GM Vial IVPUSH SCH (10:25)
[2019-10-19] MEDS: Sodium Chloride 0.9% 10 ML Syringe FLUSH PRN ×2 (11:02→15:21)
[2019-10-19] MEDS ORDERED: Furosemide 20 MG/2 ML VIAL IVPUSH ONE (16:00)
[2019-10-19] MEDS: Polyvinyl Alcohol 1.4% Ophth Soln 15 ML Bottle EYEBOTH SCH (20:06)
[2019-10-19] MEDS: Atropine/Diphenoxylate 0.025-2.5 MG Tab PO PRN (20:09)
[2019-10-19] MEDS: Acetaminophen 500 MG Tab PO PRN (20:10)
[2019-10-20] MEDS: PARoxetine 20 MG Tab PO SCH (08:07)
[2019-10-20] MEDS: Aspirin 81 MG Tab.Chew PO SCH (08:07)
[2019-10-20] MEDS: Doxycycline 100 MG Tab PO SCH (08:07)
[2019-10-20] MEDS: Sodium Chloride 0.9% 10 ML Syringe FLUSH PRN (08:11)
[2019-10-20] MEDS: cefTRIAXone 2 GM Vial IVPUSH SCH (08:11)
--- NOTE | 2019-10-20 11:04 | DISCH ---
DISCHARGE DATE: 10/20/2019 REASON FOR ADMISSION: 1. Acute renal failure. 2. Coronary artery disease. 3. Anemia. 4. Hypertension. 5. Atrial fibrillation. 6. Alteration of mental status. BRIEF HISTORY AND HOSPITAL COURSE: This is an 84-year-old female who came in with weakness, hypertension, and was found to have low hemoglobin and high creatinine of 6.6. She was rehydrated and all her antihypertensives were discontinued. She has an infection of the left knee, for which she has an orthopedic appointment. She has improved somewhat with exception of mild confusion. Her creatinine is down to 3.2. I did give her 1 unit of PRBC because of the persistent dizziness and hemoglobin of 7.7; it has now come up to 8.6. She has gained 10 pounds in the process of fluid and blood product replacements. As such, I will discharge her on home dose of Bumex and spironolactone. I discontinued the CATHERINE inhibitor. Her discharge INR is 2.25. She may resume her home dose of Coumadin and also continue the metoprolol for hypertension. She should see the PCP tomorrow to discuss further tests of CBC, CMP, and discuss her diuretics based on the findings. She was on Bactrim upon admission and culture probably grew MSSA. I discharged her home on cephalexin. Her creatinine was not able to tolerate Bactrim. I spent more than 35 minutes in the discharge of the patient. /[id number] KATHLEEN/ASHA
== END 2019-10-20 08:40 | disposition home health service (06) | DRG 683 ==
LOC: FB.ED 14:07 → FB.MS 15:56
PROVIDERS: ADMIT Emergency Medicine; ATTEND Family Medicine
PROC: 30233N1 Transfusion of Nonautologous Red Blood Cells into Peripheral Vein, Percutaneous Approach (ICD-10-PCS; principal; 2019-10-19)
DX: N17.9 Acute kidney failure, unspecified (principal); I95.9 Hypotension, unspecified; E86.0 Dehydration; R79.1 Abnormal coagulation profile; M00.9 Pyogenic arthritis, unspecified; I48.91 Unspecified atrial fibrillation; I25.10 Atherosclerotic heart disease of native coronary artery without angina pectoris; I13.0 Hypertensive heart and chronic kidney disease with heart failure and stage 1 through stage 4 chronic kidney disease, or unspecified chronic kidney disease; I25.810 Atherosclerosis of coronary artery bypass graft(s) without angina pectoris; G47.30 Sleep apnea, unspecified; R32 Unspecified urinary incontinence; D64.9 Anemia, unspecified; L60.5 Yellow nail syndrome; Z86.14 Personal history of Methicillin resistant Staphylococcus aureus infection; Z98.49 Cataract extraction status, unspecified eye; Z95.1 Presence of aortocoronary bypass graft; Z96.652 Presence of left artificial knee joint; Z51.5 Encounter for palliative care; M19.90 Unspecified osteoarthritis, unspecified site; Z96.659 Presence of unspecified artificial knee joint; I95.89 Other hypotension; E86.1 Hypovolemia; I48.0 Paroxysmal atrial fibrillation; I50.9 Heart failure, unspecified; N18.9 Chronic kidney disease, unspecified; Z79.82 Long term (current) use of aspirin; Z79.899 Other long term (current) drug therapy; Z79.01 Long term (current) use of anticoagulants; Z95.2 Presence of prosthetic heart valve
CPT/HCPCS: 36415; 36430; 80048; 80053; 81001; 83735; 83880; 85025; 85610; 86140; 86850; 86900; 86901; 86920; 86922; 87230; 93005; 93010; 99285; 99285-25; A9270-GY; J0696; J1940; J7030; J7040; J7050; P9016